=== PATIENT | female | born 2000 | race Caucasian/White ===

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

== ENCOUNTER → 2018-02-06 | Outpatient (CLI) | payer OTHER ==
--- NOTE | 2018-02-06 15:06 | XR ---
EXAMINATION TYPE: XR chest 2V DATE OF EXAM: 02/06/2018 COMPARISON: Prior chest x-ray 12/05/2017, 01/17/2018 HISTORY: Cough TECHNIQUE: Frontal and lateral views of the chest are obtained. FINDINGS: Bronchial wall thickening is noted. Cardiac mediastinal silhouette, pulmonary vascularity a nd tarik are stable. There may be spinal curvature. No evident airspace disease, or pleural effusion IMPRESSION: Correlate for bronchitis, reactive airways disease.
== END | disposition home or self-care (01) ==
LOC: RADXRMAIN 11:35
PROVIDERS: ATTEND Physician Assistant
DX: R05 Cough (principal)
CPT/HCPCS: 71046

== ENCOUNTER 2018-09-24 04:03 | Emergency (ER) | payer OTHER ==
[2018-09-24] MEDS ORDERED: SODIUM CHLORIDE 0.9% 1,000 ML IV STA (04:22)
[2018-09-24] MEDS ORDERED: METOCLOPRAMIDE 5 MG/ML 2 ML VIAL IVP STA (04:22)
[2018-09-24] MEDS ORDERED: diphenhydrAMINE 50 MG/ML 1 ML VIAL IVP STA (04:22)
--- NOTE | 2018-09-24 04:22 | ED ---
General Adult HPI - General Chief complaint: Headache Stated complaint: Weakness Time Seen by Provider: 09/24/18 04:21 Source: patient Mode of arrival: ambulatory Limitations: no limitations - History of Present Illness Initial comments: The patient is a pleasant 18-year-old female who presents the emergency department today with a complaint of headache and generalized malaise. Patient reports she's been feeling fatigued since Saturday, she reports she's had a nearly constant headache that responds may transiently to Tylenol, Motrin or her Maxalt. Patient reports that she's been unable to sleep tonight because a headache. She reports feeling very fatigued, no fevers or chills, some mild body aches. She reports she feels like she is having pressure-like pain in her bilateral eyes which is worse in her right thigh. She reports she hasn't been able to work contacts due to feeling like her eyes her. She reports mild blurred vision the right eye. She also feels feels like her eyelids are swollen. Patient also noted the last week she developed tender lymphadenopathy in the right posterior lymph node chin, this is persisted throughout the week she made her mother very anxious and brought her in for evaluation. - Related Data Home Medications Medication Instructions Recorded Confirmed Ibuprofen [Advil] 200 mg PO Q8HR PRN 01/18/17 01/23/17 Norethindrone-E.estradiol-Iron 1 each PO 2100 01/18/17 01/23/17 [Microgestin 24 Fe 1 mg-20 Mcg] Previous Rx's Medication Instructions Recorded Acetaminophen with Codeine 1 tab PO Q4H #30 tab 01/23/17 [Tylenol w/codeine #3] Allergies Allergy/AdvReac Type Severity Reaction Status Date / Time No Known Allergies Allergy Verified 09/24/18 04:20 Review of Systems ROS Statement: Those systems with pertinent positive or pertinent negative responses have been documented in the HPI. ROS Other: All systems not noted in ROS Statement are negative. Past Medical History Past Medical History: No Reported History Additional Past Medical History / Comment(s): migraines, constipation, History of Any Multi-Drug Resistant Organisms: None Reported Past Surgical History: No Surgical Hx Reported Additional Past Surgical History / Comment(s): oral surgery Past Anesthesia/Blood Transfusion Reactions: Previous Problems w/ Anesthesia, Family History of Problems w/ Anesthesia, Motion Sickness, Postoperative Nausea & Vomiting (PONV) Additional Past Anesthesia/Blood Transfusion Reaction / Comment(s): "hard time coming out", mother PONV Past Psychological History: No Psychological Hx Reported Smoking Status: Never smoker - Past Family History Mother Family Medical History: No Reported History General Exam - General Exam Comments Initial Comments: Physical Exam GENERAL: Patient is well-developed and well-nourished. Patient is nontoxic and well- hydrated and is in no distress. HENT: Normocephalic, Atraumatic. EYES: PERRL, EOMI No papilledema Pressure in the right eye measured 3 times was 16, 13, 17, no evidence of acute glaucoma PULMONARY: Unlabored respirations. No audible rales rhonchi or wheezing was noted. CARDIOVASCULAR: There is a regular rate and rhythm without any murmurs gallops or rubs. ABDOMEN: Soft and nontender with normal bowel sounds. SKIN: Skin is clear with no lesions or rashes and otherwise unremarkable. : Deferred NEUROLOGIC: Patient is alert and oriented x3. Moving all extremities spontaneously MUSCULOSKELETAL: Normal extremities with adequate strength and full range of motion. No lower extremity swelling or edema. No calf tenderness. LYMPH: Posterior cervical lymphadenopathy, mildly tender, soft, mobile PSYCHIATRIC: Normal psychiatric evaluation. Limitations: no limitations Limitations: no limitations Course Vital Signs 09/24/18 09/24/18 04:15 06:41 Temperature 98.9 F 98.1 F Pulse Rate 115 H 63 Respiratory 16 18 Rate Blood Pressure 115/79 98/65 O2 Sat by Pulse 98 99 Oximetry Medical Decision Making - Medical Decision Making Patient was seen and evaluated history was obtained from the patient and review of medical records Patient with tender cervical lymphadenopathy, generalized fatigue, mild headache Physical exam does reveal a mildly dehydrated fatigued-appearing 18-year-old female Labs were ordered and resulted with low white count, low platelet count, mild elevation of AST/ALT - heterophile was negative, however I do still have a high suspicion of Norman and recommended repeat testing Patient's MURPHY resolved completely with medications Tonometry revealed normal pressures in right eye At this time patient would like to be discharged home to rest. Patient will be given a work note to rest for the rest of the week. Patient was encouraged to return for any worsening or change in her condition. All questions pertaining care were answered the importance of follow-up for repeat testing were discussed with the patient. Patient was discharged home in stable condition mother was to drive patient home as the patient is feeling very fatigued after receiving IV Benadryl. - Lab Data Result diagrams: 09/24/18 04:39 09/24/18 04:39 Lab Results 09/24/18 09/24/18 09/24/18 Range/Units 04:39 04:39 04:39 WBC 4.8 (4.0-11.0) k/uL RBC 5.04 (3.80-5.40) m/uL Hgb 13.8 (11.4-16.0) gm/dL Hct 41.4 (34.0-46.0) % MCV 82.1 (80.0-100.0) fL MCH 27.5 (25.0-35.0) pg MCHC 33.4 (31.0-37.0) g/dL RDW 13.2 (11.5-15.5) % Plt Count 126 L (150-450) k/uL Neutrophils % (Manual) 39 % Lymphocytes % (Manual) 48 % Monocytes % (Manual) 11 % Basophils % (Manual) 2 % Neutrophils # (Manual) 1.87 (1.3-7.7) k/uL Lymphocytes # (Manual) 2.30 (1.0-4.8) k/uL Monocytes # (Manual) 0.53 (0-1.0) k/uL Basophils # (Manual) 0.10 (0-0.2) k/uL Nucleated RBCs 0 (0-0) /100 WBC Manual Slide Review Performed Reactive Lymphocytes Present Sodium 139 (137-145) mmol/L Potassium 3.9 (3.5-5.1) mmol/L Chloride 105 (98-107) mmol/L Carbon Dioxide 28 (22-30) mmol/L Anion Gap 6 mmol/L BUN 7 (7-17) mg/dL Creatinine 0.96 (0.52-1.04) mg/dL Est GFR (CKD-EPI)AfAm >90 (>60 ml/min/1.73 sqM) Est GFR (CKD-EPI)NonAf 86 (>60 ml/min/1.73 sqM) Glucose 103 H (74-99) mg/dL Calcium 9.2 (8.4-10.2) mg/dL Total Bilirubin 0.8 (0.2-1.3) mg/dL AST 42 H (14-36) U/L ALT 57 H (9-52) U/L Alkaline Phosphatase 58 (38-126) U/L Total Protein 6.7 (6.3-8.2) g/dL Albumin 4.0 (3.5-5.0) g/dL Urine Color Urine Appearance (Clear) Urine pH (5.0-8.0) Ur Specific [place] (1.001-1.035) Urine Protein (Negative) Urine Glucose (UA) (Negative) Urine Ketones (Negative) Urine Blood (Negative) Urine Nitrite (Negative) Urine Bilirubin (Negative) Urine Urobilinogen (<2.0) mg/dL Ur Leukocyte Esterase (Negative) Urine RBC (0-5) /hpf Urine WBC (0-5) /hpf Ur Squamous Epith Cells (0-4) /hpf Urine Bacteria (None) /hpf Urine Mucus (None) /hpf Urine HCG, Qual Not Detected (Not Detectd) Heterophile Antibody (Negative) 09/24/18 09/24/18 Range/Units 04:39 04:39 WBC (4.0-11.0) k/uL RBC (3.80-5.40) m/uL Hgb (11.4-16.0) gm/dL Hct (34.0-46.0) % MCV (80.0-100.0) fL MCH (25.0-35.0) pg MCHC (31.0-37.0) g/dL RDW (11.5-15.5) % Plt Count (150-450) k/uL Neutrophils % (Manual) % Lymphocytes % (Manual) % Monocytes % (Manual) % Basophils % (Manual) % Neutrophils # (Manual) (1.3-7.7) k/uL Lymphocytes # (Manual) (1.0-4.8) k/uL Monocytes # (Manual) (0-1.0) k/uL Basophils # (Manual) (0-0.2) k/uL Nucleated RBCs (0-0) /100 WBC Manual Slide Review Reactive Lymphocytes Sodium (137-145) mmol/L Potassium (3.5-5.1) mmol/L Chloride (98-107) mmol/L Carbon Dioxide (22-30) mmol/L Anion Gap mmol/L BUN (7-17) mg/dL Creatinine (0.52-1.04) mg/dL Est GFR (CKD-EPI)AfAm (>60 ml/min/1.73 sqM) Est GFR (CKD-EPI)NonAf (>60 ml/min/1.73 sqM) Glucose (74-99) mg/dL Calcium (8.4-10.2) mg/dL Total Bilirubin (0.2-1.3) mg/dL AST (14-36) U/L ALT (9-52) U/L Alkaline Phosphatase (38-126) U/L Total Protein (6.3-8.2) g/dL Albumin (3.5-5.0) g/dL Urine Color Yellow Urine Appearance Cloudy H (Clear) Urine pH 6.5 (5.0-8.0) Ur Specific [place] 1.011 (1.001-1.035) Urine Protein Trace H (Negative) Urine Glucose (UA) Negative (Negative) Urine Ketones 2+ H (Negative) Urine Blood Trace H (Negative) Urine Nitrite Negative (Negative) Urine Bilirubin Negative (Negative) Urine Urobilinogen <2.0 (<2.0) mg/dL Ur Leukocyte Esterase Negative (Negative) Urine RBC 2 (0-5) /hpf Urine WBC 2 (0-5) /hpf Ur Squamous Epith Cells 6 H (0-4) /hpf Urine Bacteria Rare H (None) /hpf Urine Mucus Moderate H (None) /hpf Urine HCG, Qual (Not Detectd) Heterophile Antibody Negative (Negative) Disposition Clinical Impression: Headache, Viral illness Disposition: HOME SELF-CARE Condition: Stable Instructions (If sedation given, give patient instructions): Acute Headache (ED ) Is patient prescribed a controlled substance at d/c from ED?: No Referrals: Arnaldo Pope DO [Primary Care Provider] - 1-2 days
[2018-09-24 04:49] LABS: HCT 41.4 % (34.0-46.0); HGB 13.8 gm/dL (11.4-16.0); MCH 27.5 pg (25.0-35.0); MCHC 33.4 g/dL (31.0-37.0); MCV 82.1 fL (80.0-100.0); Mean Platelet Volume 6.4; Platelet Count 126 k/uL (150-450); RBC 5.04 m/uL (3.80-5.40); RDW 13.2 % (11.5-15.5); WBC 4.8 k/uL (4.0-11.0)
[2018-09-24 04:56] LABS: Appearance,Urine Cloudy (Clear); Bacteria,Urine Rare /hpf; Bilirubin,Urine Negative (Negative); Blood,Urine Trace (Negative); Color,Urine Yellow; Glucose,Urine (UA) Negative (Negative); Ketones,Urine 2+ (Negative); Leukocyte Esterase,Urine Negative (Negative); Mucus,Urine Moderate /hpf; Nitrite,Urine Negative (Negative); PH, Urine 6.5 (5.0-8.0); Protein,Urine Trace (Negative); RBC,Urine 2 /hpf (0-5); Specific Gravity,Urine 1.011 (1.001-1.035); Squamous Epithelial Cell,Urine 6 /hpf (0-4); Urobilinogen,Urine <2.0 mg/dL (<2.0)
[2018-09-24 04:57] LABS: ALT 57 U/L (9-52); AST 42 U/L (14-36); Alkaline Phosphatase 58 U/L (38-126); Anion Gap 6 mmol/L; Blood Urea Nitrogen 7 mg/dL (7-17); Calcium 9.2 mg/dL (8.4-10.2); Carbon Dioxide 28 mmol/L (22-30); Chloride 105 mmol/L (98-107); Glucose 103 mg/dL (74-99); Potassium 3.9 mmol/L (3.5-5.1); Sodium 139 mmol/L (137-145); Total Bilirubin 0.8 mg/dL (0.2-1.3); Total Protein 6.7 g/dL (6.3-8.2)
[2018-09-24 05:26] LABS: Monocytes # (M) 0.53 k/uL (0-1.0); Neutrophils # (M) 1.87 k/uL (1.3-7.7); Neutrophils % (M) 39 %; Nucleated Red Blood Cells 0 /100 WBC (0-0); Total Cells Counted 100
[2018-09-24 05:27] LABS: Reactive Lymphocytes Present
[2018-09-24 06:43] VITALS: BP 98/65; PULSE 63; RESP 18; TEMP 98.1
== END 2018-09-24 06:42 | disposition home or self-care (01) ==
LOC: EC 04:03
DX: B34.9 Viral infection, unspecified (principal); E86.0 Dehydration; D72.819 Decreased white blood cell count, unspecified; D69.6 Thrombocytopenia, unspecified; R74.0 Nonspecific elevation of levels of transaminase and lactic acid dehydrogenase [LDH]; R59.0 Localized enlarged lymph nodes; H53.8 Other visual disturbances; Z79.3 Long term (current) use of hormonal contraceptives
CPT/HCPCS: 99283; 96374; 96375; 36415; 80053; 85025; 86308; 81001; 81025; J1200; J2765

== ENCOUNTER → 2018-10-22 | Outpatient (CLI) | payer OTHER ==
--- NOTE | 2018-10-22 08:07 | US ---
EXAMINATION TYPE: US abdomen complete DATE OF EXAM: 10/22/2018 COMPARISON: NONE CLINICAL HISTORY: 18-year-old female R74.8 elevated liver enzymes. TECHNIQUE: Multiple sonographic images of the abdomen are obtained. FINDINGS: EXAM MEASUREMENTS: Liver Length: 14.3 cm Gallbladder Wall: 0.3 cm CBD: 0.3 cm Spleen: 10.6 cm Right Kidney: 10.2 x 3.7 x 4.5 cm Left Kidney: 9.7 x 4.6 x 5.4 cm Pancreas: Obscured by bowel gas Liver: wnl Gallbladder: No abnormal distention, wall thickening, pericholecystic fluid, or shadowing calculi. Evidence for sonographic Padron's sign: no CBD: wnl Spleen: wnl Right Kidney: No hydronephrosis. Left Kidney: No hydronephrosis. Upper IVC: wnl Abd Aorta: proximal obscured by gas; mid & distal aorta wnl IMPRESSION: Suboptimal visualization of the pancreas. Otherwise, unremarkable sonographic examination of the abdo men.
== END | disposition home or self-care (01) ==
LOC: RADUSWWP 06:44
PROVIDERS: ATTEND Family Medicine
DX: R74.8 Abnormal levels of other serum enzymes (principal)
CPT/HCPCS: 76700

== ENCOUNTER → 2018-10-23 | Outpatient (CLI) | payer OTHER ==
--- NOTE | 2018-10-24 11:20 | ECHOF ---
Referral Reason:R07.89 chest pain MEASUREMENTS -------- HEIGHT: 165.1 cm WEIGHT: 56.7 kg BP: IVSd: 0.8 cm (0.6 - 1.1) LVIDd: 3.8 cm (3.9 - 5.3) LVPWd: 0.8 cm (0.6 - 1.1) IVSs: 1.2 cm LVIDs: 2.9 cm LVPWs: 1.3 cm LAESV Index (A-L): 11.30 ml/m Ao Diam: 2.7 cm (2.0 - 3.7) AV Cusp: 1.7 cm (1.5 - 2.6) LA Diam: 2.8 cm (2.7 - 3.8) MV EXCURSION: 13.970 mm (> 18.000) MV EF SLOPE: 139 mm/s (70 - 150) EPSS: 0.5 cm MV E Andrea: 1.07 m/s MV DecT: 188 ms MV A Andrea: 0.69 m/s MV E/A Ratio: 1.56 RAP: 5.00 mmHg RVSP: 11.09 mmHg FINDINGS -------- Sinus rhythm. This was a technically good study. The left ventricular size is normal. Left ventricular wall thickness is normal. Overall left vent ricular systolic function is normal with, an EF between 55 - 60 %. The right ventricle is normal in size. Normal LA size by volume 22+/-6 ml/m2. The right atrium is normal in size. The aortic valve is trileaflet and appears structurally normal. The mitral valve is normal. Trace tricuspid regurgitation present. The right ventricular systolic pressure, as measured by Dopp ler, is 11.09mmHg. Trace/mild (physiologic) pulmonic regurgitation. The aortic root size is normal. Normal inferior vena cava with normal inspiratory collapse consistent with estimated right atrial pre ssure of 5 mmHg. The pericardium is normal. CONCLUSIONS -------- 1. Sinus rhythm. 2. This was a technically good study. 3. The left ventricular size is normal. 4. Left ventricular wall thickness is normal. 5. Overall left ventricular systolic function is normal with, an EF between 55 - 60 %. 6. The right ventricle is normal in size. 7. Normal LA size by volume 22+/-6 ml/m2. 8. The right atrium is normal in size. 9. The aortic valve is trileaflet and appears structurally normal. 10. The mitral valve is normal. 11. Trace tricuspid regurgitation present. 12. The right ventricular systolic pressure, as measured by Doppler, is 11.09mmHg. 13. Trace/mild (physiologic) pulmonic regurgitation. 14. The aortic root size is normal. 15. Normal inferior vena cava with normal inspiratory collapse consistent with estimated right atrial pressure of 5 mmHg. 16. The pericardium is normal. COURT REPORTER: Tamia Gonzalez RDCS
== END | disposition home or self-care (01) ==
LOC: RADECHMAIN 15:16
PROVIDERS: ATTEND Family Medicine
DX: I37.1 Nonrheumatic pulmonary valve insufficiency (principal)
CPT/HCPCS: 93306

== ENCOUNTER → 2018-11-10 | Outpatient (CLI) | payer OTHER ==
--- NOTE | 2018-11-19 13:02 | EM ---
EVENT MONITOR Patient in her event monitor had mostly auto capture and some of them were triggered. Almost all rhythms are sinus. There were several tracings noted. There was no significant arrhythmia noted. This is an unremarkable seven-day event monitor with sinus rhythm and sinus tachycardia. There is no evidence of any ventricular or supraventricular ectopic beats nor of any bradyarrhythmia. ANIBAL / CHARLIEN: [id number] /
== END | disposition home or self-care (01) ==
LOC: RADECHMAIN 11:51
PROVIDERS: ATTEND Family Medicine
DX: R00.2 Palpitations (principal)
CPT/HCPCS: 93270

== ENCOUNTER → 2019-07-16 | Outpatient (CLI) | payer OTHER ==
[2019-07-16 16:00] LABS: African American GFR (CKD) 83.1 (60.0-200.0); Albumin 4.7 g/dL (3.80-4.90); Albumin/Globulin Ratio 2.47 (1.60-3.17); Anion Gap 8.9 mmol/L (4.00-12.00); BUN/Creat Ratio 7.27 Ratio (12.00-20.00); Calcium 9.6 mg/dL (8.7-10.3); Carbon Dioxide 27.1 mmol/L (21.6-31.8); Globulin 1.9 g/dL (1.6-3.3); Non-African American GFR(CKD) 71.7 (60.0-200.0); Total Bilirubin 0.5 mg/dL (0.2-1.2); Total Protein 6.6 g/dL (6.2-8.2)
== END | disposition home or self-care (01) ==
LOC: LABWHC1 08:41
PROVIDERS: ATTEND Internal Medicine Endocrinology, Diabetes & Metabolism
DX: R53.83 Other fatigue (principal)
CPT/HCPCS: 36415; 80053

== ENCOUNTER → 2019-08-27 | Outpatient (CLI) | payer OTHER ==
--- NOTE | 2019-08-27 14:04 | XR ---
EXAMINATION TYPE: XR chest 2V DATE OF EXAM: 08/27/2019 COMPARISON: Prior chest x-ray 02/06/2018 HISTORY: Cough and congestion TECHNIQUE: Frontal and lateral views of the chest are obtained. FINDINGS: There is no focal air space opacity, pleural effusion, or pneumothorax seen. The cardiac silhouette size is within normal limits. The osseous structures are intact. IMPRESSION: No evident pneumonia. Follow-up as indicated.
== END | disposition home or self-care (01) ==
LOC: RADXRMAIN 12:23
PROVIDERS: ATTEND Otolaryngology
DX: R05 Cough (principal)
CPT/HCPCS: 71046

== ENCOUNTER → 2020-03-28 | Outpatient (CLI) | payer OTHER ==
--- NOTE | 2020-03-29 07:01 | US ---
EXAMINATION TYPE: US groin RT DATE OF EXAM: 03/28/2020 COMPARISON: CT abdomen and pelvis 2014. CLINICAL HISTORY: R59.0 ENLARGED LYMPH NODES. patient can fee l small lymph node in her right upper thigh almost near labia, patient states she can only feel it ri ght prior to her period and now that cycle has happened, she cannot feel it. Soft tissue scan of groin shows no obvious abnormality and or lymph node. Images saved show no concerning solid or cystic mass or fluid collection. No suspicious adenopathy. N o suspicious hernia. IMPRESSION: As above.
== END | disposition home or self-care (01) ==
LOC: RADUSWWP 16:09
PROVIDERS: ATTEND Family Medicine
DX: R59.0 Localized enlarged lymph nodes (principal)

== ENCOUNTER → 2020-05-04 | Outpatient (CLI) | payer OTHER ==
--- NOTE | 2020-05-04 13:51 | US ---
EXAMINATION TYPE: US groin RT DATE OF EXAM: 05/04/2020 COMPARISON: US 03/28/2020 CLINICAL HISTORY: R59.0 ENLARGED LYMPH NODES. Patient can feel palpable lump in right groin, tenderne ss. This comes and goes Multiple probable lymph nodes visualized, largest measuring 1.3 x 0.9 x 0.6cm. At the patient's area of tenderness, there is a elongated hypoechoic area visualized measuring 2.1 x 0.2 x 1.1 cm with vasc ularity. Possible chain of lymph nodes vs other IMPRESSION: As above. Correlate with CT.
== END | disposition home or self-care (01) ==
LOC: RADUSWWP 12:53
PROVIDERS: ATTEND Family Medicine
DX: R59.0 Localized enlarged lymph nodes (principal)

== ENCOUNTER 2020-09-01 11:43 | Day surgery (SDC) | payer OTHER ==
[2020-08-30 11:12] VITALS: BMI 22.8
[~2020-09-01 11:43] MED LIST changes: +ACETAMINOPHEN TAB 500 MG TAB PO PRN; -DEXAMETHASONE SOD PHOSPHATE 10 MG/ML 1 ML VIAL IV ONE; +DEXAMETHASONE SOD PHOSPHATE 4 MG/ML 1 ML VIAL IV ONE; -HEPARIN SODIUM,PORCINE 5,000 UNIT/ML 1 ML VIAL SQ ONE; +HEPARIN SODIUM,PORCINE 5,000 UNIT/ML 1 ML VIAL SQ PRN; +HYDROmorphone 0.5 MG/0.5 ML SYRINGE IVP PRN; -HYDROmorphone 1 MG/ML 1 ML SYRINGE IVP PRN; +LIDOCAINE 1% (10MG/ML) FOR IV START INTRADERMA PRN; +Pre Op ABX Message 1 EACH MISC MISCELLANE ONE; -SCOPOLAMINE 1.5MG/72HR PATCH TRANSDERM ONE; -ceFAZolin 2 GM in SODIUM CHLORIDE 0.9% 100 ML IVPB ONE; -metroNIDAZOLE-NS PMX 500 MG in SALINE 1 100ML.BAG IVPB ONE
[2020-09-01 12:15] VITALS: RESP 16; TEMP 98.4
[2020-09-01] MEDS ORDERED: SCOPOLAMINE 1.5MG/72HR PATCH TRANSDERM ONE (12:43)
--- NOTE | 2020-09-01 12:47 | P.GSHP ---
History of Present Illness H&P Date: 09/01/20 Chief Complaint: Right groin nodule 20-year-old female known to our service. She has complaints of a very tender subcutaneous nodule right upper medial thigh that has been there off and on for the last 6 months but persistently present for the last 3 months. Also has a smaller symptomatic nodule in the left upper medial thigh. No overlying skin changes. No drainage. Skin appears slightly pink at times. Ultrasound showed possible lymph node. Here today for surgical excision of the right thigh nodule. Past Medical History Past Medical History: No Reported History Additional Past Medical History / Comment(s): migraines, constipation, History of Any Multi-Drug Resistant Organisms: None Reported Past Surgical History: Tonsillectomy Additional Past Surgical History / Comment(s): oral surgery, pilonidal cyst Past Anesthesia/Blood Transfusion Reactions: Previous Problems w/ Anesthesia, Family History of Problems w/ Anesthesia, Motion Sickness Additional Past Anesthesia/Blood Transfusion Reaction / Comment(s): "hard time coming out-i could not move my neck and had whole body pain", dad had hard time coming out Smoking Status: Never smoker - Past Family History Mother Family Medical History: No Reported History Medications and Allergies Home Medications Medication Instructions Recorded Confirmed Type Blisovi Control 24fe 1 tab PO 2100 08/30/20 09/01/20 History Erenumab-Aooe [Aimovig 70 mg SQ Q28D 08/30/20 09/01/20 History Autoinjector] Rizatriptan Benzoate [Maxalt] 10 mg PO DIRECTED PRN 08/30/20 09/01/20 History Allergies Allergy/AdvReac Type Severity Reaction Status Date / Time No Known Allergies Allergy Verified 09/01/20 12:15 Surgical - Exam Vital Signs Temp Pulse Resp BP Pulse Ox 98.4 F 112 H 16 137/86 99 09/01/20 12:14 09/01/20 12:14 09/01/20 12:14 09/01/20 12:14 09/01/20 12:14 Physical exam: General: Well-developed, well-nourished HEENT: Normocephalic, sclerae nonicteric Abdomen: Nontender, nondistended Extremities: No edema, tender subcutaneous nodule right upper medial thigh 3 cm from labia majora, nodule 1.5 x 1 cm, no fluctuance, no overlying skin changes, similar lesion in similar location left medial thigh measuring less than 1 cm Neuro: Alert and oriented Assessment and Plan (1) Mass of right thigh Narrative/Plan: We'll proceed with surgical excision for therapeutic and diagnostic purposes right thigh lesion. Risks of bleeding, infection, recurrence, possible need for further surgery, wound formation, scarring, numbness reviewed. She and her mother understand and wish to proceed. Current Visit: Yes Status: Acute Code(s): R22.41 - LOCALIZED SWELLING, MASS AND LUMP, RIGHT LOWER LIMB SNOMED Code(s): 043408206
[2020-09-01] MEDS ORDERED: MIDAZOLAM 2 MG/2 ML VIAL ONE (13:15)
[2020-09-01] MEDS ORDERED: KETOROLAC 15 MG/ML 1 ML VIAL ONE (13:15)
[2020-09-01] MEDS ORDERED: PROPOFOL 10 MG/ML 20 ML VIAL IV ONE (13:15)
[2020-09-01] MEDS ORDERED: fentaNYL (PF) 50 MCG/ML 2 ML AMP ONE (13:15)
[2020-09-01] MEDS ORDERED: SODIUM CHLORIDE 0.9% 100 ML with ceFAZolin 2,000 MG IV ONE ×2 (13:35)
[2020-09-01] MEDS ORDERED: BUPIVACAINE (PF) 0.25% 30 ML VIAL SQ ONE ×2 (13:43)
[2020-09-01] MEDS ORDERED: NALOXONE 0.4 MG/ML 1 ML VIAL IV PRN (14:12)
[2020-09-01] MEDS ORDERED: HYDROcodone/APAP 5-325MG 1 EACH TAB PO PRN (14:12)
--- NOTE | 2020-09-01 14:41 | P.OP ---
Date of Procedure: 09/01/20 Procedure(s) Performed: PREOPERATIVE DIAGNOSIS: Right groin lesion POSTOPERATIVE DIAGNOSIS: Right groin cystic lesion PROCEDURE: Excision right groin cystic lesion with closure SURGEON: Ann-Marie EBL: 2 [place] ANESTHESIA: Gen. COMPLICATIONS: None OPERATIVE PROCEDURE: Patient placed in the supine position on the operating table. The right leg was frog leg. The upper medial thigh was prepped and draped sterilely. An elliptical incision was made overlying the palpable skin lesion. As we dissected through the subcutaneous tissues using sharp dissection a cystic collection was encountered. Some cloudy fluid was identified. Cultures were taken. The cystic lesion was completely excised using sharp dissection and cautery. This measured 1.5 x 1 cm. This did extend superiorly and approached the skin 1 cm superior to our incision site. A small 2-3 mm defect in the skin was evident after excising the cystic lesion. This appeared to be the source of this cystic lesion. Lesion was sent to pathology. Subcutaneous tissues closed using an up to 3-0 Vicryl sutures. Skin incision closed using short running 5-0 nylon suture. A single 4-0 Monocryl suture was placed at the skin defect superiorly. Sterile dressing is applied. DISPOSITION: Stable to recovery room
[2020-09-01 14:51] VITALS: BP 150/91; PULSE 70
[2020-09-01] MEDS ORDERED: KETOROLAC 15 MG/ML 1 ML VIAL IVP SCH (18:00)
--- NOTE | 2020-09-06 15:56 | P.PN ---
Progress Note - Text Progress Note Date: 09/06/20 Patient works in the hospital. Came to see me wall I was in the bariatric center to evaluate her incision site. Cultures anaerobic showing gram-negative bacilli, gram-positive cocci and bacilli. Aerobic cultures negative. Pathology shows evidence of ruptured follicular cyst. Doing well at this time. Still having a tender nodule in the left groin. No overlying skin changes. No fevers. Exam: Incision clean and dry, sutures not ready to be removed, small less than 1 cm tender nodule without overlying skin changes left upper medial thigh Options reviewed. We'll start oral antibiotics for the residual tender nodule left groin. Return visit one week for suture removal.
== END 2020-09-01 15:42 | disposition home or self-care (01) ==
LOC: OR 11:43
PROVIDERS: ATTEND Surgery
DX: L02.415 Cutaneous abscess of right lower limb (principal); R22.42 Localized swelling, mass and lump, left lower limb; G43.909 Migraine, unspecified, not intractable, without status migrainosus; Z87.19 Personal history of other diseases of the digestive system; Z90.89 Acquired absence of other organs; Z98.890 Other specified postprocedural states; Z91.89 Other specified personal risk factors, not elsewhere classified; Z87.898 Personal history of other specified conditions; Z79.3 Long term (current) use of hormonal contraceptives; Z79.899 Other long term (current) drug therapy; Z84.89 Family history of other specified conditions
CPT/HCPCS: 81025; 88304; 87070; 87205; 87075; 11402; J2250; J1100; J2405; J0690; J3010; J1885; J2704

== ENCOUNTER → 2020-11-16 | Outpatient (CLI) | payer OTHER ==
--- NOTE | 2020-11-16 19:06 | CONS ---
CONSULTATION DATE OF SERVICE: 11/16/2020 20-year-old lady has [facility] for excessive fatigue and sleepiness and multiple awakenings from sleep. HISTORY OF PRESENT ILLNESS/SLEEP WAKE EVALUATION: SLEEP SCHEDULE: Patient's sleep schedule from 9 p.m. to 5:30 to 6:30 a.m. on weekdays and from 11 p.m. to 7:30 to 9:30 a.m. on weekends. FALLING ASLEEP: She usually falls sleep well at bedtime but in the middle of the night she wakes up and has difficulties to fall asleep again. She does have TV set in bedroom. DURING SLEEP: Usually sleeps on the side position. According to the patient and HER mother, she does not snore at all. She grinds her teeth. She wakes up with sweating and migraines. DURING THE DAY/SLEEP WAKE EVALUATION: In the morning, patient wakes up tired. Has difficulties paying attention. Has episodes of irritability and anxiety. She feels tiredness and sleepiness during the day. Takes a nap at 4:00 pm. Reed Sleepiness Scale increased to 12. No history of hypnagogic hallucinations, sleep paralysis or cataplexy. PAST MEDICAL HISTORY: Positive for migraines. Acid reflux, sinus problems. PAST SURGICAL HISTORY: Tonsillectomy, pilonidal cyst removed. MEDICATIONS: control pill, Maxzide. SOCIAL HISTORY: Negative for smoking. Alcohol consumption occasionally socially. FAMILY HISTORY: Hypertension, heart problems, snoring, diabetes and mental illness. REVIEW OF SYSTEMS: Awakenings from sleep, sleepiness during the day. PHYSICAL EXAM: Patient in no distress. BP 116/81, HR 82, RR 12, height 5 feet 5 inches, weight 141.8. Body mass index 23.4. Oropharynx practically normal position of soft palate. Mallampati 2. Neck is 13.5 inches in circumference. NECK: Supple, no JVD. Thyroid is not palpable. LUNGS: Clear to percussion and to auscultation. Good air exchange. No wheezing or rhonchi. HEART: S1, S2 regular. No murmurs, gallops, or rubs. ABDOMEN: Soft and nontender. Bowel sounds are present. No organomegaly appreciated. EXTREMITIES: No clubbing or cyanosis. ATHLETIC SCOUT: Awake, alert, and oriented X3. Cranial nerves 2 to 7 intact. There is no fasciculation or atrophy. noted. No focal deficits observed. IMPRESSION: 1. Significant amount of movements during sleep, possibly periodic limb movements. 2. Some awakenings from sleep with cough and clearing throat. Rule out obstructive sleep apnea. 3. Excessive daytime sleepiness. Reed Sleepiness Scale increased to 12. 4. Migraines. 5. Insomnia. 6. Tonsillectomy. 7. Acid reflux. 8. Sinus problem. 9. Status post pilonidal cyst removed. PLAN: 1. Polysomnography for evaluation of patient's breathing during sleep to check for possible periodic limb movements with following multiple sleep latency test for objective evaluation of symptoms of excessive daytime sleepiness. 2. Sleep hygiene with regular time in bed for 7-1/2 to 8 hours. 3. No driving if feeling sleepiness. Thank you very much for allowing me to participate in management of your patient. Sincerely, Jasvir Apodaca MD, PhD, FAASM Diplomat of [place] [employer] [place] [employer] Clinical Statistical Programmer of [facility] [place] MMODL / IJN: [id number] /
== END ==
CPT/HCPCS: 99211

== ENCOUNTER → 2020-11-24 | Outpatient (CLI) | payer OTHER | END | disposition home or self-care (01) | LOC: LABWHC1 10:33 | PROVIDERS: ATTEND Otolaryngology | DX: J30.89 Other allergic rhinitis (principal) | CPT/HCPCS: 36415 ==

== ENCOUNTER → 2020-12-08 | Outpatient (CLI) | payer OTHER ==
--- NOTE | 2020-12-08 10:43 | XR ---
EXAMINATION TYPE: XR cervical spine limited DATE OF EXAM: 12/08/2020 COMPARISON: NONE HISTORY: Pain TECHNIQUE: Three views are submitted. FINDINGS: The odontoid is intact. There are no compression deformities. The prevertebral soft tissue structur es are within normal limits. Vertebral body height and disc interspace maintained. IMPRESSION: 1. No acute process.
--- NOTE | 2020-12-08 10:45 | XR ---
EXAMINATION TYPE: XR chest 2V DATE OF EXAM: 12/08/2020 COMPARISON: NONE TECHNIQUE: PA and lateral views submitted. HISTORY: Cough FINDINGS: The lungs are clear and there is no pneumothorax, pleural effusion, or focal pneumonia. Heart size normal. No overt failure mild prominence to the interstitium. IMPRESSION: 1. Correlate for bronchitis or interstitial pneumonitis.
== END | disposition home or self-care (01) ==
LOC: RADXRMAIN 09:56
PROVIDERS: ATTEND Nurse Practitioner Family
DX: R05 Cough (principal); M54.2 Cervicalgia
CPT/HCPCS: 71046; 72040

== ENCOUNTER → 2020-12-08 | Outpatient (CLI) | payer OTHER ==
--- NOTE | 2020-12-08 16:24 | US ---
EXAMINATION TYPE: US thyroid st tissue head/neck DATE OF EXAM: 12/08/2020 COMPARISON: Ultrasound of the thyroid gland from 12/05/2017 CLINICAL HISTORY: E04.9 NONTOXIC GOITER. Goiter GLAND SIZE: Right Lobe: 3.9 x 1.5 x 1.6 cm Overall Parenchyma: homogenous Left Lobe: 3.8 x 1.0 x 1.3 cm Overall Parenchyma: homogeneous Isthmus Thickness: .3 cm NODULES RIGHT: # of nodules measured on right: 0 LEFT: # of nodules measured on left: 0 ISTHMUS: # of nodules measured in the isthmus: 0 Bilateral neck scanned, no evidence of lymphadenopathy. IMPRESSION: No discrete nodule is identified. 2017 ACR TI-RADS LEVEL: Michael category 1 *Highest TI-RADS level nodule reported 1
== END | disposition home or self-care (01) ==
LOC: RADUSWWP 16:00
PROVIDERS: ATTEND Family Medicine
DX: E04.9 Nontoxic goiter, unspecified (principal)
CPT/HCPCS: 76536

== ENCOUNTER → 2020-12-12 | Outpatient (CLI) | payer OTHER | END | disposition home or self-care (01) | LOC: LABWHC1 09:05 | PROVIDERS: ATTEND Family Medicine | DX: Z20.822 Contact with and (suspected) exposure to COVID-19 (principal); J18.9 Pneumonia, unspecified organism | CPT/HCPCS: U0003; C9803; U0005 ==

== ENCOUNTER → 2021-01-19 | Outpatient (CLI) | payer OTHER ==
--- NOTE | 2021-01-19 11:16 | CT ---
EXAMINATION TYPE: CT soft tissue neck w con DATE OF EXAM: 01/19/2021 COMPARISON: Correlation thyroid ultrasound 12/08/2020 HISTORY: 20-year-old female R13.10, trouble swallowing, Dysphagia,. TECHNIQUE: Contiguous axial scanning of the soft tissues of the neck performed with IV Contrast, robert ent injected with 100 ml mL of Isovue 300. Coronal/sagittal reconstructions performed. CT DLP: 300.00 mGycm Automated exposure control for dose reduction was used. FINDINGS: Visualized intracranial structures, orbits and globes, mastoid air cells appear clear. Moderate scatt ered mucosal thickening middle and posterior right ethmoid air cells. Nasopharynx is clear. Minimal lingual tonsillar hypertrophy, right greater than left. Epiglottis and prevertebral soft tissues are clear. Oropharynx otherwise normal. Glottic and subglottic structures as well as the tracheal column and visualized upper lungs are clear . Incidental 8 mm cyst just deep to the skin surface along the left paramedian posterior lower neck sug gestive of a sebaceous cyst. The parotid glands are atrophic. Submandibular and thyroid glands are satisfactory. No cervical lymphadenopathy. No osseous destructive process. IMPRESSION: Incidental 8 mm sebaceous cyst left paramedian posterior lower neck. Minimal lingual tonsillar hypert rophy. Moderate mucosal thickening right ethmoid air cells. Atrophic parotid glands incidentally note d. Otherwise, no specific abnormality seen.
--- NOTE | 2021-01-19 11:21 | FL ---
EXAMINATION TYPE: FL barium swallow DATE OF EXAM: 01/19/2021 CLINICAL INDICATION: 20-year-old female R1 3.10, dysphagia, complains of food getting stuck. COMPARISON: None Total Fluoroscopy Time: 1 minute 11 seconds 40 images obtained. Radiation dose was decreased by utilizing only last image hold save screens rathe r than x-ray exposures and also by decreasing the fluoroscopy rate. FINDINGS: We did note hesitancy and apparent difficulty in initiating swallowing, but otherwise, the swallowing mechanism is normal and hypopharyngeal anatomy is preserved. The cervical and thoracic portions have a normal course and caliber and normal motility. The mucosa is normal and no persistent filling defect is encountered. No hiatal hernia is present. Gastroesophageal reflux could not be elicited with Valsalva or positiona l maneuvers. IMPRESSION: While we did notice hesitancy and some apparent difficulty in initiating swallowing, no specific abno rmality is identified on the esophagram to account for these clinical symptoms.
== END | disposition home or self-care (01) ==
LOC: RADCTMAIN 09:30
PROVIDERS: ATTEND Otolaryngology
DX: L72.3 Sebaceous cyst (principal); R13.10 Dysphagia, unspecified; K11.0 Atrophy of salivary gland
CPT/HCPCS: 74220; 70491; Q9967

== ENCOUNTER 2021-02-13 15:07 | Emergency (ER) | payer OTHER ==
[2021-02-13 16:00] VITALS: RESP 18
--- NOTE | 2021-02-13 18:03 | ED ---
Skin/Abscess/FB HPI - General Chief complaint: Skin/Abscess/Foreign Body Stated complaint: cyst in groin area Time Seen by Provider: 02/13/21 17:02 Source: patient Mode of arrival: ambulatory Limitations: no limitations - History of Present Illness Initial comments: 20-year-old female presents to the emergency department with chief complaint of a cyst near the left groin. Patient reports this is been persistent over the last 1.5 years. States she has seen a general surgeon, oncologist, primary care physician a button riveter and nobody has done anything as far as imaging is concerned to assess the situation. States he was diagnosed with a possible abscess, lymph node or cyst. Patient reports she occasionally has exacerbation of the pain, and this case it was over the last 2 months. Patient reports the pain is exacerbated whenever the region is palpated areas states it is worse whenever she is walking because of her legs are rubbing together. She denies any overlying cellulitic skin changes or any discharge from the region. She denies any other signs or symptoms. - Related Data Home Medications Medication Instructions Recorded Confirmed Blisovi Control 24fe 1 tab PO 2100 08/30/20 09/01/20 Erenumab-Aooe [Aimovig 70 mg SQ Q28D 08/30/20 09/01/20 Autoinjector] Rizatriptan Benzoate [Maxalt] 10 mg PO DIRECTED PRN 08/30/20 09/01/20 Previous Rx's Medication Instructions Recorded Levofloxacin [Levaquin] 500 mg PO DAILY 7 Days #7 tab 09/06/20 Amoxicillin/Potassium Clav 1 tab PO BID 5 Days #10 tab 10/04/20 [Augmentin 875-125 Tablet] Allergies Allergy/AdvReac Type Severity Reaction Status Date / Time No Known Allergies Allergy Verified 02/13/21 16:00 Review of Systems ROS Statement: Those systems with pertinent positive or pertinent negative responses have been documented in the HPI. ROS Other: All systems not noted in ROS Statement are negative. Past Medical History Past Medical History: No Reported History Additional Past Medical History / Comment(s): migraines, constipation, History of Any Multi-Drug Resistant Organisms: None Reported Past Surgical History: Tonsillectomy Additional Past Surgical History / Comment(s): oral surgery, pilonidal cyst Past Anesthesia/Blood Transfusion Reactions: Previous Problems w/ Anesthesia, Family History of Problems w/ Anesthesia, Motion Sickness Additional Past Anesthesia/Blood Transfusion Reaction / Comment(s): "hard time coming out-i could not move my neck and had whole body pain", dad had hard time coming out Past Psychological History: Anxiety, Depression Smoking Status: Never smoker Past Alcohol Use History: Occasional Past Drug Use History: None Reported - Past Family History Mother Family Medical History: No Reported History General Exam Limitations: no limitations General appearance: alert, in no apparent distress Head exam: Present: atraumatic, normocephalic, normal inspection Eye exam: Present: normal appearance, PERRL, EOMI Pupils: Present: normal accommodation ENT exam: Present: normal exam, normal oropharynx, mucous membranes moist Neck exam: Present: normal inspection, full ROM. Absent: tenderness, lymphadenopathy Respiratory exam: Present: normal lung sounds bilaterally. Absent: respiratory distress, wheezes, rales, rhonchi, stridor, chest wall tenderness Cardiovascular Exam: Present: regular rate, normal rhythm, normal heart sounds. Absent: systolic murmur Extremities exam: Present: full ROM, tenderness (Some tenderness at the region of interest), normal capillary refill. Absent: normal inspection (Small palpable mass on the medial aspect of the left proximal thigh. No overlying cellulitic skin changes.), pedal edema, joint swelling, calf tenderness Back exam: Present: normal inspection, full ROM. Absent: tenderness, CVA tenderness (R), CVA tenderness (L) Neurological exam: Present: alert, oriented X3 Psychiatric exam: Present: normal affect, normal mood Skin exam: Present: warm, dry, intact, normal color Course Vital Signs 02/13/21 15:56 Temperature 98.6 F Pulse Rate 79 Respiratory 18 Rate Blood Pressure 131/80 O2 Sat by Pulse 100 Oximetry Medical Decision Making - Medical Decision Making 20-year-old female presents to the emergency department with chief complaint of a cyst near the left groin. On physical examination, palpable small mass that is tender to touch. This does not appear to be an infection. Symptoms ongoing for the past 1-1/2 years. Ultrasound performed shows a hypoechoic area in the subcutaneous tissue. This could be a hematoma. There were advised to follow-up with a electronic industrial controls mechanic. Return parameters were thoroughly discussed with patient and mother were understanding and agreeable. Case discussed with physician. Disposition Clinical Impression: Soft tissue mass Disposition: HOME SELF-CARE Condition: Stable Instructions (If sedation given, give patient instructions): Soft Tissue Mass (ED), Superficial Mass Needle Biopsy (ED) Additional Instructions: Please return to the Emergency Department if symptoms worsen or any other concerns. Is patient prescribed a controlled substance at d/c from ED?: No Referrals: Arnaldo Pope DO [Primary Care Provider] - 1-2 days Time of Disposition: 18:37
--- NOTE | 2021-02-13 18:31 | US ---
EXAMINATION TYPE: US extremity nonvasculr ltd LT DATE OF EXAM: 02/13/2021 COMPARISON: NONE CLINICAL HISTORY: palpable mass, medial proximal thigh. Palpable area medial proximal thigh. Scanned patient's palpable area within the medial proximal thigh. Hypoechoic area seen measuring 2.6 x 0.8 x 0.3 cm. IMPRESSION: There is hypoechoic area in the subcutaneous tissues in the area of concern on the medial thigh that has no specific appearance. This could be a hematoma..
[2021-02-13 18:45] VITALS: BP 107/74; PULSE 70; TEMP 98.7
== END 2021-02-13 18:45 | disposition home or self-care (01) ==
LOC: EC 15:07
DX: R22.42 Localized swelling, mass and lump, left lower limb (principal); F32.9 Major depressive disorder, single episode, unspecified
CPT/HCPCS: 99283

== ENCOUNTER 2021-03-10 06:33 | Day surgery (SDC) | payer OTHER ==
[2021-03-08 15:56] VITALS: BMI 22.4
[~2021-03-10 06:33] MED LIST changes: -HEPARIN SODIUM,PORCINE 5,000 UNIT/ML 1 ML VIAL SQ PRN; +HEPARIN SODIUM,PORCINE/PF 5,000 UNIT/0.5 ML SYRINGE SQ PRN; -HYDROmorphone 0.5 MG/0.5 ML SYRINGE IVP PRN; -MIDAZOLAM 2 MG/2 ML VIAL IV PRN; -ONDANSETRON 4 MG/2 ML VIAL IVP ONE; +SCOPOLAMINE 1.5MG/72HR PATCH TRANSDERM ONE
[2021-03-10] MEDS ORDERED: HYDROmorphone 0.5 MG/0.5 ML SYRINGE IVP PRN (07:00)
[2021-03-10] MEDS ORDERED: ONDANSETRON 4 MG/2 ML VIAL ONE ×2 (07:01→10:00)
[2021-03-10] MEDS ORDERED: MIDAZOLAM 2 MG/2 ML VIAL ONE (07:47)
[2021-03-10] MEDS ORDERED: LIDOCAINE 1% INJ 10MG/ML (20 ML MDV) ONE (07:47)
[2021-03-10] MEDS ORDERED: KETOROLAC 15 MG/ML 1 ML VIAL ONE (07:47)
[2021-03-10] MEDS ORDERED: fentaNYL (PF) 50 MCG/ML 2 ML AMP ONE (07:47)
[2021-03-10] MEDS ORDERED: PROPOFOL 10 MG/ML 20 ML VIAL IV ONE (07:47)
[2021-03-10] MEDS ORDERED: BUPIVACAINE (PF) 0.5% 30 ML VIAL SQ ONE ×3 (07:50→08:17)
--- NOTE | 2021-03-10 07:55 | P.GSHP ---
History of Present Illness H&P Date: 03/10/21 Chief Complaint: Left thigh skin lesion 20-year-old female known to our service. Earlier this year the patient had excision of a similar lesion on the right upper thigh. Patient had a small area of dehiscence after excision was performed but she has had good resolution of most of the symptoms of discomfort she had been having there. Pathology at that time showed inflammatory changes with subcutaneous abscess, fibrosis, changes consistent with ruptured follicular cyst. The left thigh lesion she has currently has been increasing in size and tenderness. She says it was a swollen as a golf ball at one point. She could barely walk at that time. It never did drain spontaneously. It was only slightly red. Patient was being scheduled for a dermatology consult at [facility] however given the patient's increased symptoms of discomfort she and her mother contacted me to have the lesion excised at this time. Over the last week it has actually decreased in size back to almost baseline. Past Medical History Past Medical History: No Reported History Additional Past Medical History / Comment(s): skin lesion left thigh,hx migraines, constipation, History of Any Multi-Drug Resistant Organisms: None Reported Past Surgical History: Tonsillectomy Additional Past Surgical History / Comment(s): oral surgery, pilonidal cyst,cyst removed rt groin Past Anesthesia/Blood Transfusion Reactions: Previous Problems w/ Anesthesia, Family History of Problems w/ Anesthesia, Motion Sickness Additional Past Anesthesia/Blood Transfusion Reaction / Comment(s): "hard time coming out-i could not move my neck and had whole body pain", dad had hard time coming out Past Psychological History: Anxiety, Depression Smoking Status: Never smoker Past Alcohol Use History: Occasional Past Drug Use History: None Reported - Past Family History Mother Family Medical History: No Reported History Medications and Allergies Home Medications Medication Instructions Recorded Confirmed Type Blisovi Control 24fe 1 tab PO 2100 08/30/20 03/10/21 History Rizatriptan Benzoate [Maxalt] 10 mg PO DIRECTED PRN 08/30/20 03/08/21 History Allergies Allergy/AdvReac Type Severity Reaction Status Date / Time escitalopram [From Lexapro] Allergy Cough Verified 03/08/21 15:51 Surgical - Exam Vital Signs Temp Pulse Resp BP Pulse Ox 97.8 F 70 20 117/76 100 03/10/21 07:05 03/10/21 07:05 03/10/21 07:05 03/10/21 07:05 03/10/21 07:05 Physical exam: General: Well-developed, well-nourished HEENT: Normocephalic, sclerae nonicteric Abdomen: Nontender, nondistended Extremities: No edema, left upper medial thigh with 1.5 x 1 cm area of skin induration and slight discoloration, mild tenderness, no fluctuance, no drainage, no additional abnormalities present Neuro: Alert and oriented Assessment and Plan (1) Skin lesion Narrative/Plan: Options once again reviewed. We'll proceed with surgical excision. Risks of bleeding, infection, wound formation, dehiscence, pain, recurrence discussed. She understands and wishes to proceed. Current Visit: Yes Status: Acute Code(s): L98.9 - DISORDER OF THE SKIN AND SUBCUTANEOUS TISSUE, UNSPECIFIED SNOMED Code(s): 99610750
[2021-03-10] MEDS ORDERED: SODIUM CHLORIDE 0.9% 100 ML with ceFAZolin 2,000 MG IV ONE ×2 (08:08)
[2021-03-10 08:51] VITALS: TEMP 98
--- NOTE | 2021-03-10 08:57 | P.OP ---
Date of Procedure: 03/10/21 Procedure(s) Performed: PREOPERATIVE DIAGNOSIS: Left thigh skin and subcutaneous lesion POSTOPERATIVE DIAGNOSIS: Left thigh skin and subcutaneous lesion PROCEDURE: Excision left thigh skin and subcutaneous lesion SURGEON: Ann-Marie EBL: Jayla Dubose ANESTHESIA: Gen. COMPLICATIONS: None OPERATIVE PROCEDURE: Patient placed in the operating table in the supine position. Left leg was frog legged laterally. Upper medial thigh prepped and draped sterilely. Patient had a palpable subcutaneous and cutaneous lesion present. This was identified by the patient and I preoperatively and marked. An elliptical incision was made around the palpable lesion. The subcutaneous tissues were divided using a combination of cautery and sharp dissection. The indurated fat present beneath the skin where the patient previously had an infection and tenderness was excised fully. This was sent to pathology. Subcutaneous tissues then closed using interrupted 3-0 Vicryl sutures. Skin closed using a running 5-0 Monocryl stitch. Skin glue applied. Length of closure 3 cm DISPOSITION: Stable to recovery room
[2021-03-10 09:44] VITALS: RESP 16
[2021-03-10] MEDS ORDERED: ONDANSETRON 4 MG/2 ML VIAL IVP ONE (10:03)
[2021-03-10 10:36] VITALS: BP 102/71; PULSE 71
== END 2021-03-10 11:01 | disposition home or self-care (01) ==
LOC: OR 06:33
PROVIDERS: ATTEND Surgery
DX: L98.9 Disorder of the skin and subcutaneous tissue, unspecified (principal); Z88.8 Allergy status to other drugs, medicaments and biological substances; F41.8 Other specified anxiety disorders; G43.909 Migraine, unspecified, not intractable, without status migrainosus
CPT/HCPCS: 11403; 81025; 88305; J2250; J1100; J2405; J0690; J2001; J3010; J1885; J2704

== ENCOUNTER → 2021-04-29 | Outpatient (CLI) | payer OTHER ==
[2021-04-29 11:54] LABS: Basophils # (A) 0.03 X 10*3/uL (0.00-0.10); Basophils % (A) 0.6 %; Eosinophils # (A) 0.12 X 10*3/uL (0.04-0.35); Eosinophils % (A) 2.2 %; HCT 40.8 % (37.2-46.3); Lymphocytes # (A) 2.32 X 10*3/uL (0.90-5.00); Lymphocytes % (A) 42.8 %; MCH 26.4 pg (27.0-32.0); MCHC 31.9 g/dL (32.0-37.0); MCV 82.9 fL (80.0-97.0); Mean Platelet Volume 9.6 fL (9.5-12.2); Monocytes # (A) 0.37 X 10*3/uL (0.20-1.00); Monocytes % (A) 6.8 %; Neutrophils # (A) 2.57 X 10*3/uL (1.80-7.70); Neutrophils % (A) 47.4 %; Platelet Count 240 X 10*3/uL (140-440); RBC 4.92 X 10*6/uL (4.10-5.20); RDW 13.3 % (11.5-14.5); WBC 5.42 X 10*3/uL (4.50-10.00)
[2021-04-29 13:09] LABS: Albumin 4.4 g/dL (3.8-4.9); Albumin/Globulin Ratio 1.84 (1.60-3.17); Anion Gap 13.1 mmol/L (4.00-12.00); BUN/Creat Ratio 7.19 Ratio (12.00-20.00); Blood Urea Nitrogen 7.1 mg/dL (9.0-27.0); Calcium 9.4 mg/dL (8.7-10.3); Carbon Dioxide 22.1 mmol/L (21.6-31.8); Globulin 2.4 g/dL (1.6-3.3); Non-African American GFR(CKD) 81.1 (60.0-200.0); Potassium 4.3 mmol/L (3.5-5.5); Total Bilirubin 0.4 mg/dL (0.30-1.20); Total Protein 6.8 g/dL (6.2-8.2)
[2021-05-02 01:57] LABS: EBV-EA (IgG) <0.2 AI; EBV-EBNA(IgG) 5.6 AI; EBV-VCA (IgG) >8.0 AI; EBV-VCA (IgM) 0.4 AI
== END | disposition home or self-care (01) ==
LOC: LABWHC1 08:15
PROVIDERS: ATTEND Family Medicine
DX: R53.81 Other malaise (principal); R53.83 Other fatigue
CPT/HCPCS: 36415; 80053; 84443; 85025; 86663; 86664; 86665

== ENCOUNTER 2021-08-15 12:14 | Emergency (ER) | payer OTHER ==
[2021-08-15] MEDS ORDERED: KETOROLAC 15 MG/ML 1 ML VIAL IVP STA (12:55)
[2021-08-15] MEDS ORDERED: SODIUM CHLORIDE 0.9% 1,000 ML IV STA (12:55)
--- NOTE | 2021-08-15 12:55 | ED ---
General Adult HPI - General Chief complaint: Back Pain/Injury Stated complaint: abd pain Time Seen by Provider: 08/15/21 12:48 Source: patient, family, RN notes reviewed, old records reviewed Mode of arrival: ambulatory Limitations: no limitations - History of Present Illness Initial comments: 21-year-old female, alert and oriented 4, presents to the emergency room tearful with complaints of low back pain that radiates down both legs to her feet causing spasms of her feet. Patient denies any cough, shortness of breath or fevers. She states that she does have nausea thinks related to back pain. She denies dysuria or hematuria. She has a history of pituitary adenoma. -: days(s) (1) Location: back Radiation: distal (blle) Severity scale (1-10): 10 Quality: constant Consistency: constant Improves with: none Worsens with: none Associated Symptoms: nausea/vomiting (no vomiting) - Related Data Home Medications Medication Instructions Recorded Confirmed Blisovi Control 24fe 1 tab PO HS@2100 08/30/20 08/15/21 Rizatriptan Benzoate [Maxalt] 10 mg PO DAILY PRN 08/30/20 08/15/21 Allergies Allergy/AdvReac Type Severity Reaction Status Date / Time escitalopram [From Lexapro] AdvReac Cough Verified 08/15/21 13:46 Review of Systems ROS Statement: Those systems with pertinent positive or pertinent negative responses have been documented in the HPI. ROS Other: All systems not noted in ROS Statement are negative. Past Medical History Past Medical History: No Reported History Additional Past Medical History / Comment(s): skin lesion left thigh,hx migraines, constipation, pituitary adenoma History of Any Multi-Drug Resistant Organisms: None Reported Past Surgical History: Tonsillectomy Additional Past Surgical History / Comment(s): oral surgery, pilonidal cyst,cyst removed rt groin Past Anesthesia/Blood Transfusion Reactions: Previous Problems w/ Anesthesia, Family History of Problems w/ Anesthesia, Motion Sickness Additional Past Anesthesia/Blood Transfusion Reaction / Comment(s): "hard time coming out-i could not move my neck and had whole body pain", dad had hard time coming out Past Psychological History: Anxiety, Depression Smoking Status: Never smoker Past Alcohol Use History: Occasional Past Drug Use History: None Reported - Past Family History Mother Family Medical History: No Reported History General Exam Limitations: no limitations General appearance: alert Head exam: Present: atraumatic, normocephalic, normal inspection Eye exam: Present: normal appearance, EOMI. Absent: scleral icterus, conjunctival injection Neck exam: Present: normal inspection, full ROM. Absent: tenderness, meningismus, lymphadenopathy Respiratory exam: Present: normal lung sounds bilaterally. Absent: respiratory distress, wheezes, rales, rhonchi, stridor, chest wall tenderness, accessory muscle use Cardiovascular Exam: Present: tachycardia, normal heart sounds. Absent: JVD GI/Abdominal exam: Present: soft. Absent: distended, tenderness, guarding, rebound, rigid Extremities exam: Present: normal inspection, full ROM, normal capillary refill. Absent: tenderness, pedal edema, joint swelling, calf tenderness Back exam: Present: normal inspection, full ROM, tenderness (Lumbar sacral spine). Absent: CVA tenderness (R), CVA tenderness (L), paraspinal tenderness, vertebral tenderness, rash noted Neurological exam: Present: alert, oriented X3 Psychiatric exam: Present: normal affect, normal mood Skin exam: Present: warm, dry, intact, normal color. Absent: rash, cyanosis, diaphoretic, erythema, petechiae, pallor Course Vital Signs 08/15/21 08/15/21 08/15/21 12:32 12:54 13:36 Temperature 99.1 F 100.3 F H Pulse Rate 142 H 121 H Respiratory 20 18 Rate Blood Pressure 136/78 O2 Sat by Pulse 100 100 Oximetry 08/15/21 14:41 Temperature 99.1 F Pulse Rate 75 Respiratory 16 Rate Blood Pressure 105/56 O2 Sat by Pulse 98 Oximetry Medical Decision Making - Medical Decision Making 21-year-old female presents with complaints of one day of low back pain that radiates down both legs to her feet causing spasms of her feet. Patient denies any cough, shortness of breath or fevers. She denies dysuria or hematuria. She denies injury. She does have nausea. Patient is coronavirus positive. Her urinalysis shows 2+ ketones. She was given 1 L of normal saline and Toradol and is feeling much better. She is instructed to self quarantine for 5 days for symptom onset and 5 days with mask if no symptoms. Increase her fluid intake. Patient and mother are agreeable to this plan of care. My attending is Dr. Lorenzo. - Lab Data Result diagrams: 08/15/21 13:14 08/15/21 13:14 Lab Results 08/15/21 08/15/21 08/15/21 Range/Units 13:14 13:14 13:14 WBC 6.7 (3.8-10.6) k/uL RBC 4.94 (3.80-5.40) m/uL Hgb 13.4 (11.4-16.0) gm/dL Hct 40.7 (34.0-46.0) % MCV 82.4 (80.0-100.0) fL MCH 27.1 (25.0-35.0) pg MCHC 32.9 (31.0-37.0) g/dL RDW 12.9 (11.5-15.5) % Plt Count 223 (150-450) k/uL MPV 7.3 Neutrophils % 87 % Lymphocytes % 5 % Monocytes % 7 % Eosinophils % 0 % Basophils % 0 % Neutrophils # 5.8 (1.3-7.7) k/uL Lymphocytes # 0.3 L (1.0-4.8) k/uL Monocytes # 0.5 (0-1.0) k/uL Eosinophils # 0.0 (0-0.7) k/uL Basophils # 0.0 (0-0.2) k/uL Sodium 138 (137-145) mmol/L Potassium 4.1 (3.5-5.1) mmol/L Chloride 105 (98-107) mmol/L Carbon Dioxide 20 L (22-30) mmol/L Anion Gap 13 mmol/L BUN 9 (7-17) mg/dL Creatinine 0.88 (0.52-1.04) mg/dL Est GFR (CKD-EPI)AfAm >90 (>60 ml/min/1.73 sqM) Est GFR (CKD-EPI)NonAf >90 (>60 ml/min/1.73 sqM) Glucose 90 (74-99) mg/dL Calcium 10.0 (8.4-10.2) mg/dL Total Bilirubin 0.8 (0.2-1.3) mg/dL AST 32 (14-36) U/L ALT 27 (4-34) U/L Alkaline Phosphatase 60 (38-126) U/L C-Reactive Protein 1.2 H (<1.0) mg/dL Total Protein 7.9 (6.3-8.2) g/dL Albumin 4.6 (3.5-5.0) g/dL Urine Color Light Yellow Urine Appearance Clear (Clear) Urine pH 7.0 (5.0-8.0) Ur Specific [place] 1.007 (1.001-1.035) Urine Protein Negative (Negative) Urine Glucose (UA) Negative (Negative) Urine Ketones 2+ H (Negative) Urine Blood Small H (Negative) Urine Nitrite Negative (Negative) Urine Bilirubin Negative (Negative) Urine Urobilinogen <2.0 (<2.0) mg/dL Ur Leukocyte Esterase Negative (Negative) Urine RBC <1 (0-5) /hpf Urine WBC <1 (0-5) /hpf Ur Squamous Epith Cells 3 (0-4) /hpf Urine Bacteria Rare H (None) /hpf Urine Mucus Rare H (None) /hpf Urine HCG, Qual (Not Detectd) Coronavirus (PCR) (Not Detectd) 08/15/21 08/15/21 Range/Units 13:14 13:14 WBC (3.8-10.6) k/uL RBC (3.80-5.40) m/uL Hgb (11.4-16.0) gm/dL Hct (34.0-46.0) % MCV (80.0-100.0) fL MCH (25.0-35.0) pg MCHC (31.0-37.0) g/dL RDW (11.5-15.5) % Plt Count (150-450) k/uL MPV Neutrophils % % Lymphocytes % % Monocytes % % Eosinophils % % Basophils % % Neutrophils # (1.3-7.7) k/uL Lymphocytes # (1.0-4.8) k/uL Monocytes # (0-1.0) k/uL Eosinophils # (0-0.7) k/uL Basophils # (0-0.2) k/uL Sodium (137-145) mmol/L Potassium (3.5-5.1) mmol/L Chloride (98-107) mmol/L Carbon Dioxide (22-30) mmol/L Anion Gap mmol/L BUN (7-17) mg/dL Creatinine (0.52-1.04) mg/dL Est GFR (CKD-EPI)AfAm (>60 ml/min/1.73 sqM) Est GFR (CKD-EPI)NonAf (>60 ml/min/1.73 sqM) Glucose (74-99) mg/dL Calcium (8.4-10.2) mg/dL Total Bilirubin (0.2-1.3) mg/dL AST (14-36) U/L ALT (4-34) U/L Alkaline Phosphatase (38-126) U/L C-Reactive Protein (<1.0) mg/dL Total Protein (6.3-8.2) g/dL Albumin (3.5-5.0) g/dL Urine Color Urine Appearance (Clear) Urine pH (5.0-8.0) Ur Specific [place] (1.001-1.035) Urine Protein (Negative) Urine Glucose (UA) (Negative) Urine Ketones (Negative) Urine Blood (Negative) Urine Nitrite (Negative) Urine Bilirubin (Negative) Urine Urobilinogen (<2.0) mg/dL Ur Leukocyte Esterase (Negative) Urine RBC (0-5) /hpf Urine WBC (0-5) /hpf Ur Squamous Epith Cells (0-4) /hpf Urine Bacteria (None) /hpf Urine Mucus (None) /hpf Urine HCG, Qual Not Detected (Not Detectd) Coronavirus (PCR) Detected A (Not Detectd) Disposition Clinical Impression: COVID-19, Dehydration Disposition: HOME SELF-CARE Condition: Good Instructions (If sedation given, give patient instructions): Coronavirus Disease 2019 (COVID-19), Dehydration (ED) Additional Instructions: Take Tylenol and/or Motrin as needed for body aches or fevers. Increase your fluid intake. Return to the emergency room for any new or concerning symptoms. You can take vitamin C, vitamin D and zinc diod-prr-vaycasl to improve immune health. Self quarantine for 10 days from symptom onset. If no symptoms after 5 days you can go to public with a mask for the remaining 5 days of quarantine. Return to the emergency room with any new or concerning symptoms. Is patient prescribed a controlled substance at d/c from ED?: No Referrals: Arnaldo Pope DO [Primary Care Provider] - 1-2 days Time of Disposition: 14:34
[2021-08-15] MEDS ORDERED: ACETAMINOPHEN TAB 500 MG TAB PO STA (13:16)
[2021-08-15 13:30] LABS: Basophils % (A) 0 %; Eosinophils % (A) 0 %; HCT 40.7 % (34.0-46.0); HGB 13.4 gm/dL (11.4-16.0); Lymphocytes # (A) 0.3 k/uL (1.0-4.8); Lymphocytes % (A) 5 %; MCH 27.1 pg (25.0-35.0); MCHC 32.9 g/dL (31.0-37.0); MCV 82.4 fL (80.0-100.0); Mean Platelet Volume 7.3; Monocytes # (A) 0.5 k/uL (0-1.0); Monocytes % (A) 7 %; Neutrophils # (A) 5.8 k/uL (1.3-7.7); Neutrophils % (A) 87 %; Platelet Count 223 k/uL (150-450); RBC 4.94 m/uL (3.80-5.40); RDW 12.9 % (11.5-15.5); WBC 6.7 k/uL (3.8-10.6)
[2021-08-15 13:38] LABS: Appearance,Urine Clear (Clear); Bacteria,Urine Rare /hpf; Bilirubin,Urine Negative (Negative); Blood,Urine Small (Negative); Color,Urine Light Yellow; Glucose,Urine (UA) Negative (Negative); Ketones,Urine 2+ (Negative); Leukocyte Esterase,Urine Negative (Negative); Mucus,Urine Rare /hpf; Nitrite,Urine Negative (Negative); Protein,Urine Negative (Negative); RBC,Urine <1 /hpf (0-5); Specific Gravity,Urine 1.007 (1.001-1.035); Squamous Epithelial Cell,Urine 3 /hpf (0-4); Urobilinogen,Urine <2.0 mg/dL (<2.0); WBC,Urine <1 /hpf (0-5)
[2021-08-15 13:43] LABS: ALT 27 U/L (4-34); AST 32 U/L (14-36); African American GFR (CKD) >90 (>60 ml/min/1.73 sqM); Albumin 4.6 g/dL (3.5-5.0); Alkaline Phosphatase 60 U/L (38-126); Anion Gap 13 mmol/L; Blood Urea Nitrogen 9 mg/dL (7-17); Carbon Dioxide 20 mmol/L (22-30); Chloride 105 mmol/L (98-107); Glucose 90 mg/dL (74-99); Non-African American GFR(CKD) >90 (>60 ml/min/1.73 sqM); Potassium 4.1 mmol/L (3.5-5.1); Sodium 138 mmol/L (137-145); Total Bilirubin 0.8 mg/dL (0.2-1.3); Total Protein 7.9 g/dL (6.3-8.2)
[2021-08-15 14:05] LABS: C Reactive Protein 1.2 mg/dL (<1.0)
[2021-08-15 14:42] VITALS: BP 105/56; PULSE 75; RESP 16; TEMP 99.1
== END 2021-08-15 14:42 | disposition home or self-care (01) ==
LOC: EC 12:14
DX: U07.1 COVID-19 (principal); E86.0 Dehydration; F41.9 Anxiety disorder, unspecified; F32.A Depression, unspecified
CPT/HCPCS: 99283; 96374; 36415; 80053; 85025; 86140; 81001; 81025; 87635; J1885

== ENCOUNTER → 2022-02-27 | Outpatient (CLI) | payer OTHER ==
--- NOTE | 2022-02-27 16:42 | XR ---
EXAMINATION TYPE: XR chest 2V DATE OF EXAM: 02/27/2022 COMPARISON: Chest x-ray 08/04/2021 HISTORY: Shortness of breath, cough TECHNIQUE: Frontal and lateral views of the chest are obtained. FINDINGS: There is no focal air space opacity, pleural effusion, or pneumothorax seen. The cardiac silhouette size is within normal limits. Suspect some bronchial wall thickening is present. The osse ous structures are intact, spinal curvature is again seen. IMPRESSION: Correlate for bronchitis, reactive airways disease, additional findings above
== END | disposition home or self-care (01) ==
LOC: RADXRMAIN 16:02
PROVIDERS: ATTEND Urology
DX: R06.02 Shortness of breath (principal); J98.4 Other disorders of lung
CPT/HCPCS: 71046

== ENCOUNTER → 2022-11-29 | Outpatient (CLI) | payer OTHER ==
--- NOTE | 2022-11-29 18:18 | US ---
EXAMINATION TYPE: US pelvis complete transvag DATE OF EXAM: 11/29/2022 COMPARISON: US 2016 CLINICAL INDICATION: Female, 22 years old with history of R10.2 PELVIC PAIN; Right pelvic pain x 1 ye ar, patient on control, irregular periods TECHNIQUE: . Transabdominal sonographic images of the pelvis were acquired. Transvaginal sonographi c images were medically necessary to better assess the following anatomy: per order Date of LMP: 11/02/2022 EXAM MEASUREMENTS: Uterus: 7.0 x 2.5 x 3.1 cm Endometrial Stripe: 0.2 cm Right Ovary: 2.0 x 1.3 x 2.1 cm Left Ovary: 2.6 x 1.0 x 1.9 cm 1. Uterus: anteverted 2. Endometrium: appears wnl 3. Right Ovary: wnl 4. Left Ovary: wnl 5. Bilateral Adnexa: right adnexa - small amount of free fluid 6. Posterior cul-de-sac: wnl Unremarkable anteverted uterus without focal mass identified. Endometrium is within normal limits. Anmol th ovaries are unremarkable with follicles demonstrated. Small amount of simple appearing free fluid within the right adnexa. Posterior cul-de-sac is within normal limits. IMPRESSION: 1. Small amount of free fluid in the right adnexa probably related to ruptured follicle and patient' s pain. 2. Endometrium is within normal limits.
== END | disposition home or self-care (01) ==
LOC: RADUSWWP 16:02
PROVIDERS: ATTEND Family Medicine
DX: N92.6 Irregular menstruation, unspecified (principal); R10.2 Pelvic and perineal pain
CPT/HCPCS: 76830; 76856

== ENCOUNTER 2022-12-19 10:55 | Emergency (ER) | payer OTHER ==
[2022-12-19] MEDS ORDERED: SODIUM CHLORIDE 0.9% 2,000 ML IV STA (11:48)
[2022-12-19 12:10] LABS: Basophils % (A) 1 %; Eosinophils % (A) 1 %; HCT 44.5 % (34.0-46.0); HGB 14.5 gm/dL (11.4-16.0); Lymphocytes # (A) 2.1 k/uL (1.0-4.8); Lymphocytes % (A) 33 %; MCH 26.6 pg (25.0-35.0); MCHC 32.6 g/dL (31.0-37.0); MCV 81.6 fL (80.0-100.0); Mean Platelet Volume 7.6; Monocytes # (A) 0.3 k/uL (0-1.0); Monocytes % (A) 5 %; Neutrophils # (A) 3.7 k/uL (1.3-7.7); Neutrophils % (A) 59 %; Platelet Count 289 k/uL (150-450); RBC 5.46 m/uL (3.80-5.40); RDW 13.4 % (11.5-15.5); WBC 6.3 k/uL (3.8-10.6)
--- NOTE | 2022-12-19 12:19 | ED ---
Abdominal Pain HPI - General Chief Complaint: Abdominal Pain Stated Complaint: Urgent care sent - Time Seen by Provider: 12/19/22 11:18 Source: patient, RN notes reviewed Mode of arrival: ambulatory Limitations: no limitations - History of Present Illness Initial Comments: This a 22year old for a female presents emergency Department chief complaint nausea vomiting diarrhea. Patient states she's been sick for over a week. Patient states she was sent in from urgent care she had ketones in her urine. Patient states that she does feel dehydrated she states she's had issues like this in the past. She did receive a prescription for Zofran but did not start this. She does complain of mild epigastric pain denies any lower abdominal pain. Denies fevers or chills patient had no prior abdominal surgeries no flank pain denies any chance . - Related Data Home Medications Medication Instructions Recorded Confirmed Rizatriptan Benzoate [Maxalt] 10 mg PO DAILY PRN 08/30/20 12/19/22 Pepto-Bismol Tablets 2 tab PO Q30M PRN MDD 16 tablets 12/19/22 12/19/22 norethindrone-e.estradioL-iron 1 tab PO HS@2100 12/19/22 12/19/22 [Blisovi Fe 1-20 Tablet] Allergies Allergy/AdvReac Type Severity Reaction Status Date / Time escitalopram [From Lexapro] AdvReac Cough & Verified 12/19/22 13:11 chest pain Review of Systems ROS Statement: Those systems with pertinent positive or pertinent negative responses have been documented in the HPI. ROS Other: All systems not noted in ROS Statement are negative. Past Medical History Past Medical History: No Reported History Additional Past Medical History / Comment(s): Migraines, constipation, pituitary adenoma - stable. History of Any Multi-Drug Resistant Organisms: None Reported Past Surgical History: Tonsillectomy Additional Past Surgical History / Comment(s): Oral surgery, pilonidal cyst removed, bilateral groin cysts removed. Past Anesthesia/Blood Transfusion Reactions: Previous Problems w/ Anesthesia, Family History of Problems w/ Anesthesia, Motion Sickness Additional Past Anesthesia/Blood Transfusion Reaction / Comment(s): "Hard time coming out with spinal, I could not move my neck and had whole body pain, no problems with last 2 surgeries." Dad had hard time coming out. Past Psychological History: Anxiety, Depression Smoking Status: Never smoker Past Alcohol Use History: Rare Past Drug Use History: None Reported - Past Family History Mother Family Medical History: No Reported History General Exam Limitations: no limitations General appearance: alert, in no apparent distress Head exam: Present: atraumatic, normocephalic, normal inspection Eye exam: Present: normal appearance, PERRL, EOMI. Absent: scleral icterus, conjunctival injection, periorbital swelling ENT exam: Present: normal exam, normal oropharynx, mucous membranes moist Neck exam: Present: normal inspection, full ROM. Absent: tenderness, meningismus, lymphadenopathy Respiratory exam: Present: normal lung sounds bilaterally. Absent: respiratory distress, wheezes, rales, rhonchi, stridor Cardiovascular Exam: Present: regular rate, normal rhythm, normal heart sounds. Absent: systolic murmur, diastolic murmur, rubs, gallop, clicks GI/Abdominal exam: Present: soft, tenderness (Epigastric), normal bowel sounds. Absent: guarding, rebound, rigid Back exam: Absent: CVA tenderness (R), CVA tenderness (L) Neurological exam: Present: alert Skin exam: Present: warm, dry, intact, normal color. Absent: rash Course Vital Signs 12/19/22 12/19/22 11:07 14:40 Temperature 97.5 F L 98.7 F Pulse Rate 92 72 Respiratory 18 17 Rate Blood Pressure 129/85 115/77 O2 Sat by Pulse 100 98 Oximetry Medical Decision Making - Medical Decision Making Was pt. sent in by a medical professional or institution (ZECHARIAH Kauffman, FOLDER INSPECTOR, urgent care, hospital, or senior living...) When possible be specific @ -Urgent care Did you speak to anyone other than the patient for history (EMS, parent, family, police, friend...)? What history was obtained from this source @ -No Did you review nursing and triage notes (agree or disagree)? Why? @ -I reviewed and agree with nursing and triage notes Were old charts reviewed (outside hosp., previous admission, EMS record, old EKG, old radiological studies, urgent care reports/EKG's, senior living records)? Report findings @ -No old charts were reviewed Differential Diagnosis (chest pain, altered mental status, abdominal pain women, abdominal pain men, vaginal bleeding, weakness, fever, dyspnea, syncope, headache, dizziness, GI bleed, back pain, seizure, CVA, palpatations, mental health, musculoskeletal)? @ -Differential Abdominal Pain Women: Appendicitis, Cholecystitis, diverticulosis, ischemic bowel, pancreatitis, hepatitis, UTI, gastroenteritis, AAA, incarcerated hernia, bowel obstruction, constipation, inflammatory bowel, hepatitis, peptic ulcer disease, splenic infarction, perforated viscus, vulvitis, ovarian torsion, PID, kidney stone, placenta abruption, this is not meant to be an all-inclusive list EKG interpreted by me (3pts min.). @ -None X-rays interpreted by me (1pt min.). @ -None done CT interpreted by me (1pt min.). @ -None done U/S interpreted by me (1pt. min.). @ -None done What testing was considered but not performed or refused? (CT, X-rays, U/S, labs)? Why? @ -None What meds were considered but not given or refused? Why? @ -None Did you discuss the management of the patient with other professionals (professionals i.e. , PA, FOLDER INSPECTOR, lab, RT, psych nurse, social work manager, shirt creaser, teacher, enforcement officer, manager rn case)? Give summary @ -No Was smoking cessation discussed for >3mins.? @ -No Was critical care preformed (if so, how long)? @ -No Were there social determinants of health that impacted care today? How? (Homelessness, low income, unemployed, alcoholism, drug addiction, butler sportation, low edu. Level, literacy, decrease access to med. care, [facility], rehab)? @ -No Was there de-escalation of care discussed even if they declined (Discuss DNR or withdrawal of care, Hospice)? DNR status @ -No What co-morbidities impacted this encounter? (DM, HTN, Smoking, COPD, CAD, Cancer, CVA, ARF, Chemo, Hep., AIDS, mental health diagnosis, sleep apnea, morbid obesity)? @ -None Was patient admitted / discharged? Hospital course, mention meds given and route, prescriptions, significant lab abnormalities, going to OR and other pertinent info. @ -Discharge patient acutely dehydrated. Patient was given 2 L of fluid, labs are unremarkable. She does feel greatly improved after Zofran and fluids. Patient discharged she has a prescription at home for Zofran. Undiagnosed new problem with uncertain prognosis? @ -No Drug Therapy requiring intensive monitoring for toxicity (Heparin, Nitro, Insuli n, Cardizem)? @ -No Were any procedures done? @ -No Diagnosis/symptom? @ -Dehydration, nausea vomiting abdominal Acute, or Chronic, or Acute on Chronic? @ -Acute Uncomplicated (without systemic symptoms) or Complicated (systemic symptoms)? @ -Uncomplicated Side effects of treatment? @ -No Exacerbation, Progression, or Severe Exacerbation? @ -No Poses a threat to life or bodily function? How? (Chest pain, [place], [place], pneumonia, PE, COPD, DKA, ARF, appy, cholecystitis, CVA, Diverticulitis, Homicidal, Suicidal, threat to staff... and all critical care pts) @ -No - Lab Data Result diagrams: 12/19/22 11:53 12/19/22 12:37 Lab Results 12/19/22 12/19/22 12/19/22 Range/Units 11:53 11:53 11:53 WBC 6.3 (3.8-10.6) k/uL RBC 5.46 H (3.80-5.40) m/uL Hgb 14.5 (11.4-16.0) gm/dL Hct 44.5 (34.0-46.0) % MCV 81.6 (80.0-100.0) fL MCH 26.6 (25.0-35.0) pg MCHC 32.6 (31.0-37.0) g/dL RDW 13.4 (11.5-15.5) % Plt Count 289 (150-450) k/uL MPV 7.6 Neutrophils % 59 % Lymphocytes % 33 % Monocytes % 5 % Eosinophils % 1 % Basophils % 1 % Neutrophils # 3.7 (1.3-7.7) k/uL Lymphocytes # 2.1 (1.0-4.8) k/uL Monocytes # 0.3 (0-1.0) k/uL Eosinophils # 0.0 (0-0.7) k/uL Basophils # 0.0 (0-0.2) k/uL Sodium (137-145) mmol/L Potassium (3.5-5.1) mmol/L Chloride (98-107) mmol/L Carbon Dioxide (22-30) mmol/L Anion Gap mmol/L BUN (7-17) mg/dL Creatinine (0.52-1.04) mg/dL Est GFR (CKD-EPI)AfAm (>60 ml/min/1.73 sqM) Est GFR (CKD-EPI)NonAf (>60 ml/min/1.73 sqM) Glucose (74-99) mg/dL Calcium (8.4-10.2) mg/dL Magnesium (1.6-2.3) mg/dL Total Bilirubin (0.2-1.3) mg/dL AST (14-36) U/L ALT (4-34) U/L Alkaline Phosphatase (38-126) U/L Total Protein (6.3-8.2) g/dL Albumin (3.5-5.0) g/dL Lipase (23-300) U/L Urine Color Yellow Urine Appearance Cloudy H (Clear) Urine pH 6.5 (5.0-8.0) Ur Specific [place] 1.032 (1.001-1.035) Urine Protein 1+ H (Negative) Urine Glucose (UA) Negative (Negative) Urine Ketones 4+ H (Negative) Urine Blood Negative (Negative) Urine Nitrite Negative (Negative) Urine Bilirubin Negative (Negative) Urine Urobilinogen <2.0 (<2.0) mg/dL Ur Leukocyte Esterase Negative (Negative) Urine RBC 3 (0-5) /hpf Urine WBC 1 (0-5) /hpf Ur Squamous Epith Cells 11 H (0-4) /hpf Urine Bacteria Rare H (None) /hpf Urine Mucus Many H (None) /hpf Urine HCG, Qual Not Detected (Not Detectd) 12/19/22 Range/Units 12:37 WBC (3.8-10.6) k/uL RBC (3.80-5.40) m/uL Hgb (11.4-16.0) gm/dL Hct (34.0-46.0) % MCV (80.0-100.0) fL MCH (25.0-35.0) pg MCHC (31.0-37.0) g/dL RDW (11.5-15.5) % Plt Count (150-450) k/uL MPV Neutrophils % % Lymphocytes % % Monocytes % % Eosinophils % % Basophils % % Neutrophils # (1.3-7.7) k/uL Lymphocytes # (1.0-4.8) k/uL Monocytes # (0-1.0) k/uL Eosinophils # (0-0.7) k/uL Basophils # (0-0.2) k/uL Sodium 138 (137-145) mmol/L Potassium 3.8 (3.5-5.1) mmol/L Chloride 106 (98-107) mmol/L Carbon Dioxide 20 L (22-30) mmol/L Anion Gap 12 mmol/L BUN 8 (7-17) mg/dL Creatinine 0.96 (0.52-1.04) mg/dL Est GFR (CKD-EPI)AfAm >90 (>60 ml/min/1.73 sqM) Est GFR (CKD-EPI)NonAf 83 (>60 ml/min/1.73 sqM) Glucose 75 (74-99) mg/dL Calcium 8.4 (8.4-10.2) mg/dL Magnesium 1.8 (1.6-2.3) mg/dL Total Bilirubin 0.6 (0.2-1.3) mg/dL AST 18 (14-36) U/L ALT 16 (4-34) U/L Alkaline Phosphatase 43 (38-126) U/L Total Protein 6.4 (6.3-8.2) g/dL Albumin 3.8 (3.5-5.0) g/dL Lipase 86 (23-300) U/L Urine Color Urine Appearance (Clear) Urine pH (5.0-8.0) Ur Specific [place] (1.001-1.035) Urine Protein (Negative) Urine Glucose (UA) (Negative) Urine Ketones (Negative) Urine Blood (Negative) Urine Nitrite (Negative) Urine Bilirubin (Negative) Urine Urobilinogen (<2.0) mg/dL Ur Leukocyte Esterase (Negative) Urine RBC (0-5) /hpf Urine WBC (0-5) /hpf Ur Squamous Epith Cells (0-4) /hpf Urine Bacteria (None) /hpf Urine Mucus (None) /hpf Urine HCG, Qual (Not Detectd) Disposition Clinical Impression: Dehydration, Abdominal pain Disposition: HOME SELF-CARE Condition: Stable Instructions (If sedation given, give patient instructions): Abdominal Pain (ED) Additional Instructions: Please return to the Emergency Department if symptoms worsen or any other concerns. Is patient prescribed a controlled substance at d/c from ED?: No Referrals: Arnaldo Pope DO [Primary Care Provider] - 1-2 days Time of Disposition: 14:13
[2022-12-19 12:21] LABS: Appearance,Urine Cloudy (Clear); Bacteria,Urine Rare /hpf; Bilirubin,Urine Negative (Negative); Blood,Urine Negative (Negative); Color,Urine Yellow; Glucose,Urine (UA) Negative (Negative); Ketones,Urine 4+ (Negative); Leukocyte Esterase,Urine Negative (Negative); Mucus,Urine Many /hpf; Nitrite,Urine Negative (Negative); PH, Urine 6.5 (5.0-8.0); Protein,Urine 1+ (Negative); RBC,Urine 3 /hpf (0-5); Specific Gravity,Urine 1.032 (1.001-1.035); Squamous Epithelial Cell,Urine 11 /hpf (0-4); Urobilinogen,Urine <2.0 mg/dL (<2.0); WBC,Urine 1 /hpf (0-5)
[2022-12-19 12:59] LABS: ALT 16 U/L (4-34); AST 18 U/L (14-36); African American GFR (CKD) >90 (>60 ml/min/1.73 sqM); Albumin 3.8 g/dL (3.5-5.0); Alkaline Phosphatase 43 U/L (38-126); Anion Gap 12 mmol/L; Blood Urea Nitrogen 8 mg/dL (7-17); Calcium 8.4 mg/dL (8.4-10.2); Carbon Dioxide 20 mmol/L (22-30); Chloride 106 mmol/L (98-107); Glucose 75 mg/dL (74-99); Lipase 86 U/L (23-300); Magnesium 1.8 mg/dL (1.6-2.3); Non-African American GFR(CKD) 83 (>60 ml/min/1.73 sqM); Potassium 3.8 mmol/L (3.5-5.1); Sodium 138 mmol/L (137-145); Total Bilirubin 0.6 mg/dL (0.2-1.3); Total Protein 6.4 g/dL (6.3-8.2)
[2022-12-19 14:49] VITALS: BP 115/77; PULSE 72; RESP 17; TEMP 98.7
== END 2022-12-19 14:49 | disposition home or self-care (01) ==
LOC: EC 10:55
DX: E86.0 Dehydration (principal); R10.13 Epigastric pain; R11.2 Nausea with vomiting, unspecified
CPT/HCPCS: 36415; 80053; 81001; 81025; 83690; 83735; 85025; 96360; 96361; 99284

== ENCOUNTER → 2023-03-04 | Outpatient (CLI) | payer OTHER ==
--- NOTE | 2023-03-05 08:47 | US ---
EXAMINATION TYPE: US venous doppler duplex LE RT DATE OF EXAM: 03/04/2023 3:25 PM COMPARISON: NONE CLINICAL INDICATION: Female, 22 years old with history of R22.43 LEG SWELLING; Rt calf cramping x 1 d ay SIDE PERFORMED: Right TECHNIQUE: The lower extremity deep venous system is examined utilizing real time linear array sonog corbin with graded compression, doppler sonography and color-flow sonography. VESSELS IMAGED: Common Femoral Vein Deep Femoral Vein Greater Saphenous Vein * Femoral Vein Popliteal Vein Small Saphenous Vein * Proximal Calf Veins (* superficial vessels) Right Leg: Negative for DVT IMPRESSION: Grayscale, color doppler, spectral doppler imaging performed of the deep veins of the lo wer extremities. There is normal flow, compressibility, vascular waveforms.
== END | disposition home or self-care (01) ==
LOC: RADUSWWP 14:54
PROVIDERS: ATTEND Urology
DX: R22.43 Localized swelling, mass and lump, lower limb, bilateral (principal)

== ENCOUNTER → 2023-10-30 | Outpatient (CLI) | payer OTHER ==
[2023-10-30 08:37] LABS: Basophils % (A) 1 %; Eosinophils # (A) 0.1 k/uL (0-0.7); Eosinophils % (A) 2 %; HCT 41.3 % (34.0-46.0); HGB 13.3 gm/dL (11.4-16.0); Lymphocytes # (A) 2.3 k/uL (1.0-4.8); Lymphocytes % (A) 29 %; MCH 27.2 pg (25.0-35.0); MCHC 32.3 g/dL (31.0-37.0); MCV 84.2 fL (80.0-100.0); Monocytes # (A) 0.3 k/uL (0-1.0); Monocytes % (A) 4 %; Neutrophils # (A) 5.1 k/uL (1.3-7.7); Neutrophils % (A) 64 %; Platelet Count 299 k/uL (150-450)
[2023-10-30 09:12] LABS: ALT 17 U/L (4-34); AST 19 U/L (14-36); African American GFR (CKD) >90 (>60 ml/min/1.73 sqM); Albumin 4.2 g/dL (3.5-5.0); Alkaline Phosphatase 63 U/L (38-126); Anion Gap 10 mmol/L; Blood Urea Nitrogen 11 mg/dL (7-17); Calcium 9.5 mg/dL (8.4-10.2); Carbon Dioxide 22 mmol/L (22-30); Chloride 106 mmol/L (98-107); Glucose 81 mg/dL (74-99); Non-African American GFR(CKD) 90 (>60 ml/min/1.73 sqM); Potassium 4.1 mmol/L (3.5-5.1); Sodium 138 mmol/L (137-145); Total Bilirubin 0.5 mg/dL (0.2-1.3)
[2023-10-30 13:03] LABS: Thyroid Peroxidase Antibodies <9.0 U/mL (0.0-33.0)
[2023-10-30 15:58] LABS: Chol/HDL Ratio 4.35 Ratio; Iron 104 UG/DL (50-170)
== END | disposition home or self-care (01) ==
LOC: LABT 07:52
PROVIDERS: ATTEND Nurse Practitioner Family
DX: Z00.00 Encounter for general adult medical examination without abnormal findings (principal); Z13.1 Encounter for screening for diabetes mellitus; E04.9 Nontoxic goiter, unspecified; R53.83 Other fatigue
CPT/HCPCS: 80053; 80061; 82533; 83036; 83540; 84439; 84443; 84481; 85025; 86376; 86800

== ENCOUNTER → 2023-11-07 | Outpatient (CLI) | payer OTHER ==
--- NOTE | 2023-11-07 12:24 | US ---
EXAMINATION TYPE: US thyroid st tissue head/neck DATE OF EXAM: 11/07/2023 COMPARISON: US 12/08/2020 CLINICAL INDICATION: Female, 23 years old with history of E04.9 NONTOXIC GOITER, UNSPECIFIED; Goiter. GLAND SIZE: Right Lobe: 4.6 x 1.4 x 1.6 cm Overall Parenchyma: homogeneous Left Lobe: 3.8 x 1.3 x 1.2 cm Overall Parenchyma: homogeneous Isthmus Thickness: 0.24 cm NODULES RIGHT: # of nodules measured on right: 0 cm LEFT: # of nodules measured on left: 0 ISTHMUS: # of nodules measured in the isthmus: 0 Bilateral neck scanned, no evidence of lymphadenopathy. IMPRESSION: No discrete abnormality seen. 2017 ACR TI-RADS LEVEL: *Highest TI-RADS level nodule reported
== END | disposition home or self-care (01) ==
LOC: RADUSWWP 07:29
PROVIDERS: ATTEND Family Medicine
DX: E04.1 Nontoxic single thyroid nodule (principal)
CPT/HCPCS: 76536

== ENCOUNTER → 2023-11-14 | Outpatient (CLI) | payer OTHER ==
[2023-11-15 04:50] LABS: ACTH 10.3 pg/mL (0.00-45.99)
== END | disposition home or self-care (01) ==
LOC: LABWHC1 13:25
PROVIDERS: ATTEND Nurse Practitioner Family
DX: R89.1 Abnormal level of hormones in specimens from other organs, systems and tissues (principal)
CPT/HCPCS: 36415; 82024; 82627

== ENCOUNTER 2023-11-25 04:51 | Emergency (ER) | payer OTHER ==
--- NOTE | 2023-11-25 06:53 | ED ---
Headache HPI - General Chief Complaint: Headache Stated Complaint: migraine Time Seen by Provider: 11/25/23 05:00 Mode of arrival: ambulatory Limitations: no limitations - History of Present Illness Initial Comments: 23-year-old female with past medical history of migraines who presents emergency department with migraine. States that she has not had a breakthrough migraine in close to 7 years. Her headache started last night. Denies any symptoms that are out of the ordinary for her typical migraines. She denies any head trauma. Admits to head pressure with nausea. No vomiting. She did take her home medications without any improvement. She denies any fevers. No neck stiffness. No concern for . She does not currently follow with a neurologist. No other alleviating, precipitating or modifying factors - Related Data Home Medications Medication Instructions Recorded Confirmed Rizatriptan Benzoate [Maxalt] 10 mg PO DAILY PRN 08/30/20 12/19/22 Pepto-Bismol Tablets 2 tab PO Q30M PRN MDD 16 tablets 12/19/22 12/19/22 norethindrone-e.estradioL-iron 1 tab PO HS@2100 12/19/22 12/19/22 [Blisovi Fe 1-20 Tablet] Allergies Allergy/AdvReac Type Severity Reaction Status Date / Time escitalopram [From Lexapro] AdvReac Cough & Verified 11/25/23 04:54 chest pain Review of Systems ROS Statement: Those systems with pertinent positive or pertinent negative responses have been documented in the HPI. ROS Other: All systems not noted in ROS Statement are negative. Past Medical History Past Medical History: No Reported History Additional Past Medical History / Comment(s): Migraines, constipation, pituitary adenoma - stable. History of Any Multi-Drug Resistant Organisms: None Reported Past Surgical History: Tonsillectomy Additional Past Surgical History / Comment(s): Oral surgery, pilonidal cyst removed, bilateral groin cysts removed. Past Anesthesia/Blood Transfusion Reactions: Previous Problems w/ Anesthesia, Family History of Problems w/ Anesthesia, Motion Sickness Additional Past Anesthesia/Blood Transfusion Reaction / Comment(s): "Hard time coming out with spinal, I could not move my neck and had whole body pain, no problems with last 2 surgeries." Dad had hard time coming out. Past Psychological History: Anxiety, Depression Smoking Status: Never smoker Past Alcohol Use History: Rare Past Drug Use History: None Reported - Past Family History Mother Family Medical History: No Reported History General Exam Limitations: no limitations General appearance: alert, in no apparent distress Head exam: Present: atraumatic, normocephalic, normal inspection Eye exam: Present: normal appearance, PERRL, EOMI. Absent: scleral icterus, conjunctival injection, periorbital swelling ENT exam: Present: normal exam, mucous membranes moist Neck exam: Present: normal inspection. Absent: tenderness, meningismus, lymphadenopathy Respiratory exam: Present: normal lung sounds bilaterally. Absent: respiratory distress, wheezes, rales, rhonchi, stridor Cardiovascular Exam: Present: regular rate, normal rhythm, normal heart sounds. Absent: systolic murmur, diastolic murmur, rubs, gallop, clicks GI/Abdominal exam: Present: soft, normal bowel sounds. Absent: distended, tenderness, guarding, rebound, rigid Extremities exam: Present: normal inspection, full ROM, normal capillary refill. Absent: tenderness, pedal edema, joint swelling, calf tenderness Back exam: Present: normal inspection Neurological exam: Present: alert, oriented X3, CN II-XII intact Psychiatric exam: Present: normal affect, normal mood Skin exam: Present: warm, dry, intact, normal color. Absent: rash Course Vital Signs 11/25/23 11/25/23 11/25/23 04:52 09:21 10:06 Temperature 98.3 F 98.1 F 98.2 F Pulse Rate 99 65 74 Respiratory 16 18 18 Rate Blood Pressure 125/86 95/60 101/70 O2 Sat by Pulse 98 100 100 Oximetry Medical Decision Making - Medical Decision Making Was pt. sent in by a medical professional or institution (, PA, CHLORINE OPERATOR, urgent care, hospital, or penitentiary...) When possible be specific @ -No Did you speak to anyone other than the patient for history (EMS, parent, family, police, friend...)? What history was obtained from this source @ -Spoke with patient's mom Did you review nursing and triage notes (agree or disagree)? Why? @ -I reviewed and agree with nursing and triage notes Were old charts reviewed (outside hosp., previous admission, EMS record, old EKG, old radiological studies, urgent care reports/EKG's, penitentiary records)? Report findings @ -No old charts were reviewed Differential Diagnosis (chest pain, altered mental status, abdominal pain women, abdominal pain men, vaginal bleeding, weakness, fever, dyspnea, syncope, headache, dizziness, GI bleed, back pain, seizure, CVA, palpatations, mental health, musculoskeletal)? @ -Differential Headache: Migraine, tension, cluster, carbon monoxide, central venous thrombosis, pension karma temporal arteritis, acute closure glaucoma, intercranial hemorrhage, mastoiditis, sinusitis, head injury, this is not meant to be an all-inclusive list. EKG interpreted by me (3pts min.). @ -Not done X-rays interpreted by me (1pt min.). @ -None done CT interpreted by me (1pt min.). @ -None done U/S interpreted by me (1pt. min.). @ -None done What testing was considered but not performed or refused? (CT, X-rays, U/S, labs)? Why? @ -CT imaging was considered however will treat patient's headache first and then consider if headache remains What meds were considered but not given or refused? Why? @ -None Did you discuss the management of the patient with other professionals (professionals i.e. , PA, CHLORINE OPERATOR, lab, RT, psych nurse, social welfare research worker, clinical applications manager, teacher, bank secrecy act officer, manager rn case)? Give summary @ -No Was smoking cessation discussed for >3mins.? @ -No Was critical care preformed (if so, how long)? @ -No Were there social determinants of health that impacted care today? How? (Homelessness, low income, unemployed, alcoholism, drug addiction, transpor tation, low edu. Level, literacy, decrease access to med. care, [facility], rehab)? @ -No Was there de-escalation of care discussed even if they declined (Discuss DNR or withdrawal of care, Hospice)? DNR status @ -No What co-morbidities impacted this encounter? (DM, HTN, Smoking, COPD, CAD, Cancer, CVA, ARF, Chemo, Hep., AIDS, mental health diagnosis, sleep apnea, morbid obesity)? @ -None Was patient admitted / discharged? Hospital course, mention meds given and route, prescriptions, significant lab abnormalities, going to OR and other pertinent info. @ -Upon arrival patient was seen and evaluated. Thorough history physical exam was performed. IV was established. Migraine cocktail was administered. Patient is awaiting resolution of pain. I will sign the case out to Dr. Rodriguez Who will reevaluate patient to ensure that her migraine has resolved before discharge Undiagnosed new problem with uncertain prognosis? @ -No Drug Therapy requiring intensive monitoring for toxicity (Heparin, Nitro, Insulin, Cardizem)? @ -No Were any procedures done? @ -No Diagnosis/symptom? @Acute migraine cephalgia Acute, or Chronic, or Acute on Chronic? @ -Acute Uncomplicated (without systemic symptoms) or Complicated (systemic symptoms)? @ -Complicated Side effects of treatment? @ -No Exacerbation, Progression, or Severe Exacerbation? @ -No Poses a threat to life or bodily function? How? (Chest pain, [place], [place], pneumonia, PE, COPD, DKA, ARF, appy, cholecystitis, CVA, Diverticulitis, Homicidal, Suicidal, threat to staff... and all critical care pts) @ -No Disposition Clinical Impression: Migraine Disposition: HOME SELF-CARE Condition: Stable Instructions (If sedation given, give patient instructions): Acute Headache (ED) Is patient prescribed a controlled substance at d/c from ED?: No Referrals: Arnaldo Pope DO [Primary Care Provider] - 1-2 days Time of Disposition: 07:47
[2023-11-25] MEDS: KETOROLAC 15 MG/ML 1 ML VIAL IVP STA (07:18)
[2023-11-25] MEDS: METOCLOPRAMIDE 5 MG/ML 2 ML VIAL IVP STA (07:19)
[2023-11-25] MEDS: SODIUM CHLORIDE 0.9% 1,000 ML IV ONE (07:19)
[2023-11-25] MEDS: MAGNESIUM SULFATE-D5W PMX 1 GM in DEXTROSE/WATER 1 100ML.BAG IVPB ONE (07:21)
[2023-11-25] MEDS: diphenhydrAMINE 50 MG/ML 1 ML VIAL IVP STA ×2 (07:24→09:06)
[2023-11-25] MEDS: SODIUM CHLORIDE 0.9% 1,000 ML IV STA (08:54)
[2023-11-25] MEDS: PROCHLORPERAZINE INJ 10 MG/2 ML VIAL IVP STA (09:06)
[2023-11-25] MEDS: ACETAMINOPHEN IV (For NPO) 1,000 MG in EMPTY BAG 1 BAG IVPB ONE (09:13)
[2023-11-25 10:02] VITALS: RESP 18
[2023-11-25 10:50] VITALS: BP 101/70; PULSE 74; TEMP 98.2
== END 2023-11-25 10:07 | disposition home or self-care (01) ==
LOC: EC 04:51
DX: G43.909 Migraine, unspecified, not intractable, without status migrainosus (principal); Z88.8 Allergy status to other drugs, medicaments and biological substances
CPT/HCPCS: 96365; 96366; 96375 ×3; 96361; 99283; J1200; J2765; J3475; J1885

== ENCOUNTER → 2023-12-04 | Outpatient (CLI) | payer OTHER | END | disposition home or self-care (01) | LOC: LABWHC1 13:07 | PROVIDERS: ATTEND Family Medicine | DX: R53.83 Other fatigue (principal) | CPT/HCPCS: 36415; 82310; 83970 ==

== ENCOUNTER → 2023-12-28 | Outpatient (CLI) | payer OTHER ==
--- NOTE | 2023-12-28 10:35 | MR ---
EXAMINATION TYPE: MR shoulder RT wo con DATE OF EXAM: 12/28/2023 COMPARISON: None HISTORY: Right shoulder pain x3 months TECHNIQUE: Multiplanar, multisequence imaging of the right shoulder is performed without contrast. FINDINGS: There is no bone contusion or fracture. There is no osteoarthritis of the AC joint and glenohumeral joint. The acromium is laterally down slo ping resulting in mild shoulder impingement. There is mild tendinosis of the supraspinatus tendon but no discrete tear. The subscapularis and infraspinatus tendons are intact. The biceps tendon is normal in position and signal intensity within the bicipital groove and the elvin ps anchor is intact. There is no evidence of a labral tear. There is mild subacromial bursitis. IMPRESSION: 1. Mild shoulder impingement and mild subacromial bursitis as described above. 2. Mild tendinosis of the supraspinatus tendon but no definite rotator cuff tear. 3. No labral injury. 4. No degeneration of the glenohumeral joint or AC joint.
== END | disposition home or self-care (01) ==
LOC: RADMRIMAIN 09:19
PROVIDERS: ATTEND Orthopaedic Surgery Sports Medicine
DX: M25.811 Other specified joint disorders, right shoulder (principal); M67.813 Other specified disorders of tendon, right shoulder; M75.41 Impingement syndrome of right shoulder; M75.52 Bursitis of left shoulder

== ENCOUNTER → 2024-01-04 | Outpatient (CLI) | payer OTHER ==
[2024-01-04 13:20] LABS: Basophils # (A) 0.04 X 10*3/uL (0.00-0.10); Basophils % (A) 0.7 %; Eosinophils # (A) 0.12 X 10*3/uL (0.04-0.35); Eosinophils % (A) 2.2 %; HCT 42.5 % (37.2-46.3); HGB 13.5 g/dL (12.0-15.0); Lymphocytes # (A) 2.34 X 10*3/uL (0.90-5.00); Lymphocytes % (A) 43.6 %; MCH 26.3 pg (27.0-32.0); MCHC 31.8 g/dL (32.0-37.0); MCV 82.8 FL (80.0-97.0); Mean Platelet Volume 9.9 FL (9.5-12.2); Monocytes # (A) 0.29 X 10*3/uL (0.20-1.00); Monocytes % (A) 5.4 %; NRBC Per 100 WBC 0 X 10*3/uL (0.00-0.01); Neutrophils # (A) 2.57 X 10*3/uL (1.80-7.70); Neutrophils % (A) 47.9 %; Platelet Count 284 X 10*3/uL (140-440); RBC 5.13 X 10*6/uL (4.10-5.20); RDW 13.3 % (11.5-14.5); WBC 5.37 X 10*3/uL (4.50-10.00)
[2024-01-04 13:37] LABS: ALT 21 U/L (8-44); AST 17 U/L (13-35); Albumin 4.5 g/dL (3.8-4.9); Alkaline Phosphatase 68 U/L (41-126); Blood Urea Nitrogen 10.7 mg/dL (9.0-27.0); Calcium 9.4 mg/dL (8.7-10.3); Carbon Dioxide 22.6 mmol/L (21.6-31.8); Chloride 104 mmol/L (96-109); Globulin 2.5 g/dL (1.6-3.3); Glucose 87 mg/dL (70-110); Potassium 4.6 mmol/L (3.5-5.5); Sodium 139 mmol/L (135-145); T4, Free (Free Thyroxine) 1.06 ng/dL (0.80-1.80); Total Bilirubin 0.2 mg/dL (0.3-1.2)
== END | disposition home or self-care (01) ==
LOC: LABWHC1 08:23
PROVIDERS: ATTEND Family Medicine
DX: D35.2 Benign neoplasm of pituitary gland (principal); R94.7 Abnormal results of other endocrine function studies
CPT/HCPCS: 36415; 80053; 82533; 84146; 84439; 84443; 85025

== ENCOUNTER → 2024-02-22 | Outpatient (CLI) | payer OTHER ==
[2024-02-22 13:16] LABS: Basophils # (A) 0.04 X 10*3/uL (0.00-0.10); Basophils % (A) 0.7 %; Eosinophils # (A) 0.16 X 10*3/uL (0.04-0.35); HCT 40.7 % (37.2-46.3); Lymphocytes # (A) 2.47 X 10*3/uL (0.90-5.00); MCH 26.4 pg (27.0-32.0); MCHC 31.9 g/dL (32.0-37.0); MCV 82.6 FL (80.0-97.0); Mean Platelet Volume 9.7 FL (9.5-12.2); Monocytes % (A) 7.4 %; NRBC Per 100 WBC 0 X 10*3/uL (0.00-0.01); Neutrophils # (A) 2.29 X 10*3/uL (1.80-7.70); Neutrophils % (A) 42.7 %; Platelet Count 322 X 10*3/uL (140-440); RBC 4.93 X 10*6/uL (4.10-5.20); RDW 13.7 % (11.5-14.5); WBC 5.37 X 10*3/uL (4.50-10.00)
[2024-02-22 13:28] LABS: ALT 20 U/L (8-44); AST 20 U/L (13-35); Albumin 4.3 g/dL (3.8-4.9); Albumin/Globulin Ratio 1.72 Ratio (1.60-3.17); Alkaline Phosphatase 73 U/L (41-126); BUN/Creat Ratio 10.09 Ratio (12.00-20.00); Blood Urea Nitrogen 11.1 mg/dL (9.0-27.0); Calcium 9.5 mg/dL (8.7-10.3); Carbon Dioxide 23.5 mmol/L (21.6-31.8); Chloride 103 mmol/L (96-109); Chol/HDL Ratio 4.36 Ratio; Globulin 2.5 g/dL (1.6-3.3); Glucose 87 mg/dL (70-110); LDL Cholesterol,Calculated 153.8 mg/dL (0.0-131.0); Potassium 4.5 mmol/L (3.5-5.5); Sodium 138 mmol/L (135-145); Total Bilirubin 0.4 mg/dL (0.3-1.2); Total Protein 6.8 g/dL (6.2-8.2)
== END | disposition home or self-care (01) ==
LOC: LABWHC1 08:10
PROVIDERS: ATTEND Family Medicine
DX: E78.2 Mixed hyperlipidemia (principal); R94.4 Abnormal results of kidney function studies
CPT/HCPCS: 36415; 80053; 80061; 85025

== ENCOUNTER → 2024-04-17 | Outpatient (CLI) | payer OTHER ==
--- NOTE | 2024-04-17 13:46 | US ---
EXAMINATION TYPE: US kidneys/renal and bladder DATE OF EXAM: 04/17/2024 COMPARISON: US CLINICAL INDICATION: Female, 23 years old with history of R94.4 ABNORAL KIDNEY FUNCTION STUDIES; Pt s tates h/o UTI EXAM MEASUREMENTS: Right Kidney: 12.0 x 4.0 x 4.6 cm Left Kidney: 11.2 x 4.9 x 4.3 cm Right Kidney: No evidence of hydro, lower pole gassed out Left Kidney: No evidence of hydro Bladder: wnl Bilateral Jets seen: Only left jet visualized There is no evidence for hydronephrosis at this point in time. No nephrolithiasis is seen. No marques s are identified. The urinary bladder is anechoic. Bilateral ureteral jets are seen. IMPRESSION: 1 No acute abnormality renal ultrasound. [facility], , 04/17/2024 1:44 PM
== END | disposition home or self-care (01) ==
LOC: RADUSWWP 08:19
PROVIDERS: ATTEND Family Medicine
DX: R94.4 Abnormal results of kidney function studies
CPT/HCPCS: 76770

== ENCOUNTER → 2024-08-25 | Outpatient (CLI) | payer BC ==
--- NOTE | 2024-08-25 16:19 | US ---
EXAMINATION TYPE: US thyroid st tissue head/neck DATE OF EXAM: 08/25/2024 COMPARISON: Thyroid ultrasound 11/07/2023, 12/08/2020, 12/05/2017 CLINICAL INDICATION: Female, 24 years old with history of E04.1 Nontoxic single thyroid nodule; TECHNIQUE: Grayscale and color Doppler imaging of the thyroid gland. FINDINGS: GLAND SIZE: Right Lobe: 4.6x1.2x1.5 cm Overall Parenchyma: homogeneous Left Lobe: 4.0x1.0x1.3 cm Overall Parenchyma: homogeneous Isthmus Thickness: 0.3 cm NODULES RIGHT: # of nodules measured on right: 0 LEFT: # of nodules measured on left: 0 ISTHMUS: # of nodules measured in the isthmus: 0 Bilateral neck scanned, no evidence of lymphadenopathy. IMPRESSION: Unremarkable thyroid without discrete nodule. [facility], , 08/25/2024 4:16 PM
== END | disposition home or self-care (01) ==
LOC: RADUSWWP 15:56
PROVIDERS: ATTEND Internal Medicine
DX: E04.1 Nontoxic single thyroid nodule (principal)
CPT/HCPCS: 76536

== ENCOUNTER → 2024-09-21 | Outpatient (CLI) | payer BC ==
--- NOTE | 2024-09-22 06:42 | US ---
EXAMINATION TYPE: US pelvis complete transvag DATE OF EXAM: 09/21/2024 COMPARISON: Prior pelvic ultrasound November 29, 2022 CLINICAL INDICATION: Female, 24 years old with history of N92.1 EXCESSIVE AND FREQUENT MENSTRUATION; on control for 10 years, skips cycles, when she has them they are heavy and with clots TECHNIQUE: TA/TV. Transabdominal grayscale sonographic images of the pelvis were acquired. Transvaginal sonographic im ages were medically necessary to better assess the following anatomy: uterus and ovaries Doppler imaging: Not performed. FINDINGS: Date of LMP: 08/13/2024 EXAM MEASUREMENTS: Uterus: 5.3 x 3.8 x 2.6 cm Endometrial Stripe: 0.2 cm Right Ovary: not seen Left Ovary: 2.4 x 2.2 x 1.4 cm Patient states her bladder felt very full - is was not so we proceeded with TV 1. Uterus: Anteverted wnl 2. Endometrium: wnl 3. Right Ovary: not seen, bowel gas 4. Left Ovary: 1.2 x 2.0 x 1.4cm 5. Bilateral Adnexa: wnl 6. Posterior cul-de-sac: wnl Anteverted heterogeneous uterus. Endometrial stripe is thin for secretory phase of menstrual cycle ba sed on last menstrual period August 13. No free fluid noted. No suspicious adnexal masses. Right ova ry not seen. IMPRESSION: Suboptimal study. Thinning of the endometrial stripe for patient's last menstrual period likely product of taking oral contraceptives. No suspicious finding seen to account for patient's cli nical symptoms. [facility], , 09/22/2024 6:39 AM
== END | disposition home or self-care (01) ==
LOC: RADUSWWP 15:27
PROVIDERS: ATTEND Obstetrics & Gynecology
DX: N92.1 Excessive and frequent menstruation with irregular cycle (principal)
CPT/HCPCS: 76830; 76856

== ENCOUNTER → 2024-10-17 | Outpatient (CLI) | payer BC ==
--- NOTE | 2024-10-21 13:52 | MR ---
EXAMINATION TYPE: MR pituitary wo/w con DATE OF EXAM: 10/17/2024 3:03 PM COMPARISON: Outside institution MR Pituitary 12/01/2022, 12/20/2021 CLINICAL INDICATION: Female, 24 years old with history of D35.2 BENIGN NEOPLASM OF PITUITARY GLAND, P ituitary microadenoma, please compare to prior MRI IV Contrast: 8 cc Gadobutrol (None if empty) TECHNIQUE: Multiplanar, multisequence images of the brain and brainstem is performed without and with IV contras t, utilizing 8 mL intravenous Gadobutrol . FINDINGS: Mild diffuse heterogeneity of pituitary enhancement redemonstrated. There is a vague 3 x 2 mm hypoenhancing lesion within the left aspect of the pituitary (series 701, image 11). Pituitary inf undibulum is midline. Neural hypophysis is normal. The optic chiasm is normal. Visualized brain paren chyma is unremarkable. IMPRESSION: Vague 3 x 2 mm hypoenhancing lesion within the left aspect of the pituitary gland. Could possibly rel ate to a pituitary microadenoma versus heterogenous enhancement versus other etiologies. [facility], , 10/21/2024 1:49 PM
== END | disposition home or self-care (01) ==
LOC: RADMRIMAIN 13:44
PROVIDERS: ATTEND Internal Medicine
DX: D35.2 Benign neoplasm of pituitary gland (principal); E23.6 Other disorders of pituitary gland
CPT/HCPCS: 70553; A9585

== ENCOUNTER → 2024-10-24 | Outpatient (CLI) | payer BC ==
[2024-10-24 08:35] LABS: Ionized Calcium 4.8 mg/dL (4.5-5.3)
[2024-10-24 13:49] LABS: Albumin 4.2 g/dL (3.8-4.9); Blood Urea Nitrogen 9.3 mg/dL (9.0-27.0); Calcium 9.4 mg/dL (8.7-10.3); Carbon Dioxide 22.9 mmol/L (21.6-31.8); Chloride 104 mmol/L (96-109); Glucose 92 mg/dL (70-110); Phosphorus 3.4 mg/dL (2.4-5.1); Potassium 4.4 mmol/L (3.5-5.5); Sodium 138 mmol/L (135-145)
== END | disposition home or self-care (01) ==
LOC: LABWHC1 07:51
PROVIDERS: ATTEND Internal Medicine
DX: E83.52 Hypercalcemia (principal)
CPT/HCPCS: 36415; 80048; 82040; 82306; 82330; 82652; 83970; 84100

== ENCOUNTER → 2024-11-21 | Outpatient (CLI) | payer BC ==
[2024-11-21 14:04] LABS: Basophils # (A) 0.04 X 10*3/uL (0.00-0.10); Basophils % (A) 0.6 %; Eosinophils # (A) 0.16 X 10*3/uL (0.04-0.35); Eosinophils % (A) 2.3 %; HCT 42.3 % (37.2-46.3); HGB 13.2 g/dL (12.0-15.0); Lymphocytes # (A) 2.27 X 10*3/uL (0.90-5.00); Lymphocytes % (A) 32.8 %; MCH 25.7 pg (27.0-32.0); MCHC 31.2 g/dL (32.0-37.0); MCV 82.5 FL (80.0-97.0); Mean Platelet Volume 9.4 FL (9.5-12.2); Monocytes # (A) 0.39 X 10*3/uL (0.20-1.00); Monocytes % (A) 5.6 %; NRBC Per 100 WBC 0 X 10*3/uL (0.00-0.01); Neutrophils # (A) 4.01 X 10*3/uL (1.80-7.70); Platelet Count 334 X 10*3/uL (140-440); RBC 5.13 X 10*6/uL (4.10-5.20); RDW 13.9 % (11.5-14.5); WBC 6.92 X 10*3/uL (4.50-10.00)
[2024-11-21 14:28] LABS: Insulin Level 22.9 mIU/mL (3.0-25.0)
[2024-11-21 15:33] LABS: Thyroid Peroxidase Antibodies 10.4 U/mL (0.0-33.0)
[2024-11-21 15:37] LABS: Erythrocyte Sedimentation Rate 13 mm/Hr (0-20)
[2024-11-21 15:42] LABS: LDL Cholesterol,Calculated 127.9 mg/dL (0.0-131.0)
[2024-11-21 15:43] LABS: ALT 18 U/L (8-44); AST 17 U/L (13-35); Albumin 4.2 g/dL (3.8-4.9); Albumin/Globulin Ratio 1.91 Ratio (1.60-3.17); Alkaline Phosphatase 77 U/L (41-126); BUN/Creat Ratio 10.78 Ratio (12.00-20.00); Blood Urea Nitrogen 9.7 mg/dL (9.0-27.0); Calcium 9.2 mg/dL (8.7-10.3); Carbon Dioxide 20.9 mmol/L (21.6-31.8); Chloride 105 mmol/L (96-109); Globulin 2.2 g/dL (1.6-3.3); Glucose 89 mg/dL (70-110); HCG,Quantitative Serum <3.0 mIU/mL (0.0-6.0); Potassium 4.6 mmol/L (3.5-5.5); Rheumatoid Factor, Qnt <15 IU/mL (0-15); Sodium 139 mmol/L (135-145); T4, Free (Free Thyroxine) 1.06 ng/dL (0.80-1.80); Total Bilirubin 0.3 mg/dL (0.3-1.2); Total Protein 6.4 g/dL (6.2-8.2)
[2024-11-21 16:34] LABS: Follicle Stimulating Hormone 2.5 mIU/mL; Luteinizing Hormone 1.6 mIU/mL
== END | disposition home or self-care (01) ==
LOC: LABWHC1 07:28
PROVIDERS: ATTEND Nurse Practitioner Family
DX: E66.811 Obesity, class 1 (principal); D35.2 Benign neoplasm of pituitary gland; Z68.33 Body mass index [BMI] 33.0-33.9, adult
CPT/HCPCS: 36415; 80053; 80061; 82306; 82533; 82671; 83001; 83002; 83036; 83525; 84144; 84146; 84403; 84439; 84443; 84479; 84481; 84702; 85025; 85652; 86038; 86140; 86376; 86431